=== PATIENT | female | born 1935 | race Caucasian/White ===

== ENCOUNTER 2017-09-07 13:48 | Inpatient (IN) | payer MEDICARE, BC, OTHER, SELFPAY ==
[2017-09-07 12:28] VITALS: BP 126/70; PULSE 123; RESP 18; TEMP 36.7; O2SAT 92; BMI 22.1
--- NOTE | 2017-09-07 12:41 | XR_ITS ---
XR chest portable Ordering Physician: Ashley Ignacio MD Patient Age: 81 years: Female HISTORY: ITS.REASON: SOA TECHNIQUE/FINDINGS: Limited rotated portable AP upright chest performed and compared to previous chest film from 02/01/2017. Left lower lobe infiltrate, pneumonic infiltrate is seen today and obscures the left hemidiaphragm. There may be a small left pleural effusion noted blunting towards the left CP angle.. The left upper lung field is clear Right lung demonstrates chronic changes throughout which are similar to previous study. Subtle accentuation of density towards the right base but I favor this reflects chronic changes, mild atelectasis as well as costochondral calcification projected over the right lung base. Minimal area density at the periphery the right midlung most likely reflecting chronic changes as well as accentuated by the higher contrast CXR today. Doubt early infiltrate here. Very minimal scarring at the right apex. . Difficult to exclude trace minimal infiltrate just lateral to the right [place] on this study Heart is normal in size. [place] and mediastinal structures similar. The left [place] is upper normal prominence. Follow-up chest film be important to exclude any underlying fullness or abnormalities of the left [place]. Scoliosis. Kyphosis . No CHF =IMPRESSION= 1. Left lower lobe pneumonia 2. Fullness left [place] most likely accentuated by leftward rotation of chest. 3. follow-up CXR will be important to exclude any underlying findings at left [place] and confirm clearing of the current LLL pneumonia.. 4. Chronic lung changes. COPD
--- NOTE | 2017-09-07 12:44 | HMH.EDSOB ---
ED Disposition Clinical Impression: COPD exacerbation, Bronchiectasis, DNR (do not resuscitate), Pneumonia Disposition: Still a Patient Condition on Discharge: Fair - Critical Care Critical Care Time: No Attestation: On , the high probability of a clinically significant, sudden or life threatening deterioration of the following system(s) required my full and direct attention, intervention and personal management. The time I documented below is in addition to time spent performing reported procedures but includes the following listed in this critical care notation. Medical Decision Making - Medical Records Medical records reviewed: Yes: I reviewed the patient's medical records. Vital Signs: 09/07/17 12:28 Temperature 98.1 F Temperature Source Oral Pulse Rate [Right Brachial] 123 H Respiratory Rate 18 Blood Pressure [Right Arm] 126/70 Blood Pressure Mean [Right Arm] 88 Blood Pressure Source [Right Arm] Automatic Cuff Blood Pressure Position [Right Arm] Sitting 02 Sat by Pulse Oximetry 92 L Oxygen Delivery Method Room Air - Lab Data Lab Results 09/07/17 12:40: WBC 24.0 H*, RBC 3.05 L, Hgb 8.6 L, Hct 27.4 L, MCV 90.0, MCH 28.3, MCHC 31.4 L, RDW 15.1, Plt Count 190, MPV 9.4, Neut % (Auto) 92.7 H, Lymph % (Auto) 2.4 L, [place] % (Auto) 3.8, Eos % (Auto) 0.4, Baso % (Auto) 0.7, Neut # (Auto) 22.2 H, Lymph # (Auto) 0.6 L, [place] # (Auto) 0.9, Eos # (Auto) 0.1, Baso # (Auto) 0.2, Total Counted 100, Neutrophils % (Manual) 85 H, Band Neutrophils % 4.0, Lymphocytes % (Manual) 7 L, Atypical Lymphs % 1.0, Monocytes % (Manual) 3, Platelet Estimate Normal, RBC Morphology Normal 09/07/17 12:40: Sodium 139, Potassium 3.5, Chloride 97 L, Carbon Dioxide 40 H, Anion Gap 5.5, BUN 30 H, Creatinine 0.86, Estimated Creat Clear 41, Estimated GFR 64, Est GFR ( Amer) 77, Glucose 137 H, Calcium 8.9, Total Bilirubin 0.4, AST 19, ALT 51, Alkaline Phosphatase 86, Troponin I < 0.02, Total Protein 6.1 L, Albumin 2.3 L, Globulin 3.8 H, Albumin/Globulin Ratio 0.6 L 09/07/17 12:40: B-Natriuretic Peptide 97 09/07/17 12:45: Specimen Source Right radial, O2 % 5 lpm aerosol mask, ABG pH 7.47 H, ABG pCO2 57.9 H, ABG pO2 61.4 L, ABG HCO3 41.4 H, ABG Total CO2 43.2 H, ABG O2 Saturation 92, ABG Base Excess 17.7 H, Adama Test Acceptable 09/07/17 12:50: Lactic Acid 1.4 Result diagrams: 09/07/17 12:40 09/07/17 12:40 Orders (Tests/Meds): ED MEDICATIONS Generic Name Dose Route Start Last Admin Trade Name Sunny PRN Reason Stop Dose Admin Famotidine 20 mg 09/07/17 21:00 Pepcid 20mg/2ml Vial IV 10/07/17 20:59 BID GAVI Cefepime HCl 1 gm/ Sodium 50 mls @ 100 mls/hr 09/07/17 12:45 09/07/17 14:17 Chloride IV 09/21/17 12:44 100 mls/hr Q12H GAVI Administration Protocol Vancomycin HCl 1,000 mg/ 250 mls @ 125 mls/hr 09/07/17 14:30 Sodium Chloride IV 09/21/17 14:29 Q24H GAVI Discontinued Medications Generic Name Dose Route Start Last Admin Trade Name Sunny PRN Reason Stop Dose Admin Methylprednisolone Sodium Succinate 125 mg 09/07/17 12:41 09/07/17 14:17 Solu-Medrol 125mg/2ml Vial IV 09/07/17 12:42 125 mg ONCE ONE Administration Sodium Chloride 8 ml 09/07/17 12:41 09/07/17 14:17 Saline Flush 10ml Syringe IV 09/07/17 12:42 8 ml ONCE ONE Administration Vancomycin HCl 1,000 mg 09/07/17 12:45 Vancomycin 1000mg Adv IV 09/07/17 23:00 CONSULT PHARMACY GAVI Protocol ORDERS Category Date Time Status Blood Culture Stat Micro 09/07/17 12:55 Received Sputum Culture & Gram Stain Stat Micro 09/07/17 12:41 Ordered ABG [Arterial Blood Gas] Stat RT 09/07/17 12:43 Ordered ECG Request by /Nse Stat Y 09/07/17 12:41 Ordered - Magdaleno Inquiry Pt receiving controlled substance: No Magdaleno was queried for this patient: No Medical Decision Making Narrative: The patient had ABG with respiratory alkalosis her chest x-ray was positive for bibasilar infiltrates and the
--- NOTE | 2017-09-07 12:48 | ED_ITS ---
ED Disposition Clinical Impression: COPD exacerbation, Bronchiectasis, DNR (do not resuscitate), Pneumonia Disposition: Still a Patient Condition on Discharge: Fair - Critical Care Critical Care Time: No Attestation: On , the high probability of a clinically significant, sudden or life threatening deterioration of the following system(s) required my full and direct attention, intervention and personal management. The time I documented below is in addition to time spent performing reported procedures but includes the following listed in this critical care notation. Medical Decision Making - Medical Records Medical records reviewed: Yes: I reviewed the patient's medical records. Vital Signs: 09/07/17 12:28 Temperature 98.1 F Temperature Source Oral Pulse Rate [Right Brachial] 123 H Respiratory Rate 18 Blood Pressure [Right Arm] 126/70 Blood Pressure Mean [Right Arm] 88 Blood Pressure Source [Right Arm] Automatic Cuff Blood Pressure Position [Right Arm] Sitting 02 Sat by Pulse Oximetry 92 L Oxygen Delivery Method Room Air - Lab Data Lab Results 09/07/17 12:40: WBC 24.0 H*, RBC 3.05 L, Hgb 8.6 L, Hct 27.4 L, MCV 90.0, MCH 28.3, MCHC 31.4 L, RDW 15.1, Plt Count 190, MPV 9.4, Neut % (Auto) 92.7 H, Lymph % (Auto) 2.4 L, [place] % (Auto) 3.8, Eos % (Auto) 0.4, Baso % (Auto) 0.7, Neut # (Auto) 22.2 H, Lymph # (Auto) 0.6 L, [place] # (Auto) 0.9, Eos # (Auto) 0.1 , Baso # (Auto) 0.2, Total Counted 100, Neutrophils % (Manual) 85 H, Band Neutrophils % 4.0, Lymphocytes % (Manual) 7 L, Atypical Lymphs % 1.0, Monocytes % (Manual) 3, Platelet Estimate Normal, RBC Morphology Normal 09/07/17 12:40: Sodium 139, Potassium 3.5, Chloride 97 L, Carbon Dioxide 40 H, Anion Gap 5.5, BUN 30 H, Creatinine 0.86, Estimated Creat Clear 41, Estimated GFR 64, Est GFR ( Amer) 77, Glucose 137 H, Calcium 8.9, Total Bilirubin 0.4, AST 19, ALT 51, Alkaline Phosphatase 86, Troponin I < 0.02, Total Protein 6.1 L, Albumin 2.3 L, Globulin 3.8 H, Albumin/Globulin Ratio 0.6 L 09/07/17 12:40: B-Natriuretic Peptide 97 09/07/17 12:45: Specimen Source Right radial, O2 % 5 lpm aerosol mask, ABG pH 7.47 H, ABG pCO2 57.9 H, ABG pO2 61.4 L, ABG HCO3 41.4 H, ABG Total CO2 43.2 H, ABG O2 Saturation 92, ABG Base Excess 17.7 H, Adama Test Acceptable 09/07/17 12:50: Lactic Acid 1.4 Result diagrams: 09/07/17 12:40 09/07/17 12:40 Orders (Tests/Meds): ED MEDICATIONS Generic Name Dose Route Start Last Admin Trade Name Sunny PRN Reason Stop Dose Admin Famotidine 20 mg 09/07/17 21:00 Pepcid 20mg/2ml Vial IV 10/07/17 20:59 BID GAVI Cefepime HCl 1 gm/ Sodium 50 mls @ 100 mls/hr 09/07/17 12:45 09/07/17 14:17 Chloride IV 09/21/17 12:44 100 mls/hr Q12H GAVI Administration Protocol Vancomycin HCl 1,000 mg/ 250 mls @ 125 mls/hr 09/07/17 14:30 Sodium Chloride IV 09/21/17 14:29 Q24H GAVI Discontinued Medications Generic Name Dose Route Start Last Admin Trade Name Sunny PRN Reason Stop Dose Admin Methylprednisolone Sodium Succinate 125 mg 09/07/17 12:41 09/07/17 14:17 Solu-Medrol 125mg/2ml Vial IV 09/07/17 12:42 125 mg ONCE ONE Administration Sodium Chloride 8 ml 09/07/17 12:41 09/07/17 14:17 Saline Flush 10ml Syringe IV 09/07/17 12:42 8 ml ONCE ONE Administration Vancomycin HCl 1,000 mg 08/28
[2017-09-07 12:53] LABS: ABG Base Excess 17.7 mmol/L (-2.4-2.3); ABG HCO3 41.4 mmhg (22.0-26.0); ABG Oxygen Saturation 92 % (90-100); ABG PH 7.47 mmol/L (7.35-7.45); ABG PO2 61.4 mmhg (80-100); ABG TCO2 43.2 mmhg (23-27)
[2017-09-07 12:56] LABS: ABG PCO2 57.9 mmhg (35.0-45.0); Allen's Test ACCEPTABLE; Source RIGHT RADIAL
[2017-09-07 13:25] LABS: Basophils # 0.2 K/mm3 (0-0.2); Basophils % 0.7 % (0.1-2.0); Eosinophils # 0.1 K/mm3 (0.0-0.4); Eosinophils % 0.4 % (0.1-12.0); Hematocrit 27.4 % (37.0-47.0); Hemoglobin 8.6 g/dL (12.2-16.2); Lymphocytes # 0.6 K/mm3 (0.7-4.5); Lymphocytes % 2.4 K/mm3 (10-50); Mean Corpuscular HGB Conc 31.4 g/dL (31.8-35.4); Mean Corpuscular Hemoglobin 28.3 pg (27.0-31.2); Mean Platelet Volume 9.4 fl (7.4-10.4); Monocytes # 0.9 K/mm3 (0.1-1.0); Monocytes % 3.8 % (1.7-9.3); Neutrophils # 22.2 K/mm3 (1.8-7.8); Neutrophils % 92.7 % (37.0-80.0); Platelet Count 190 K/mm3 (142-424); Red Blood Count 3.05 M/mm3 (4.20-5.40); Red Cell Distribution Width 15.1 % (11.5-17.5)
[2017-09-07 13:27] LABS: MANUAL DIFFERENTIAL MANUAL DIFFERENTIAL (MANUAL DIFF)
[2017-09-07 13:35] LABS: Lactic Acid 1.4 mmol/L (0.4-2.0)
[2017-09-07 13:36] LABS: Alanine Aminotransferase 51 U/L (12-78); Albumin Level 2.3 gm/dL (3.4-5.0); Albumin/Globulin Ratio 0.6 (1.1-1.8); Alkaline Phosphatase 86 U/L (46-116); Anion Gap 5.5 mEq/L (5-15); Aspartate Amino Transferase 19 U/L (15-37); Bilirubin,Total 0.4 mg/dL (0.2-1.0); Blood Urea Nitrogen 30 mg/dL (7-18); Calcium 8.9 mg/dL (8.5-10.1); Carbon Dioxide 40 mmol/L (21.0-32.0); Chloride 97 mmol/L (98-107); Creatinine Clearance Estimated 41 mL/min (0-300); Creatinine,Serum 0.86 mg/dL (0.55-1.02); Estimated Glomerular Filt Rate 64 ml/min (>60); GFR (African American) 77 ML/MIN (>60); Globulin 3.8 gm/dl (1.3-3.2); Glucose 137 mg/dL (74-106); Potassium 3.5 mmoL/L (3.5-5.1); Sodium 139 mmol/L (136-145); Total Protein,Serum 6.1 gm/dL (6.4-8.2); Troponin I < 0.02 ng/ml (0.00-0.06)
[2017-09-07 13:42] LABS: Lymphocytes % 7 % (10-50); Monocytes % 3 % (2-9); Neutrophils % 85 % (42-76); Platelet Estimate Normal; RBC Morphology Normal; Total Cells Counted 100
--- NOTE | 2017-09-07 14:27 | P.CONPHA_ITS ---
- Pharmacy Consult Date: 09/07/17 Time: 14:26 Referring provider: DR. LAMB Reason for Consult:: VANCOMYCIN DOSING Allergies and ADEs:: Allergies Allergy/AdvReac Type Severity Reaction Status Date / Time No Known Allergies Allergy Unverified 06/17/17 14:18 Home Medications:: Home Medications Medication Instructions Recorded Confirmed Type Aspirin [Aspir 81] 81 mg PO DAILY 09/07/17 09/07/17 History Budesonide/Formoterol Fumarate 10.2 gm IH DIRECTED 09/07/17 09/07/17 History [Symbicort 80-4.5 Mcg Inhaler] Fluconazole [Diflucan 100mg tablet] 0 mg * DAILY 09/07/17 09/07/17 History Fluconazole [Diflucan 200mg tablet] 200 mg PO DAILY 09/07/17 09/07/17 History Furosemide [Lasix 20mg tab] 20 mg PO DAILY 09/07/17 09/07/17 History Pantoprazole Sodium [Protonix 40mg 40 mg PO DIRECTED 09/07/17 09/07/17 History tablet] Tiotropium [place] [Spiriva 0 mcg IH DIRECTED 09/07/17 09/07/17 History 18mcg/puff inhaler] dilTIAZem HCl [Cardizem] 30 mg PO DIRECTED 09/07/17 09/07/17 History levoFLOXacin [Levaquin 750mg 750 mg PO DAILY 09/07/17 09/07/17 History tablet] predniSONE [Deltasone 5mg 5 mg PO DAILY 09/07/17 09/07/17 History tablet] Height: 1.6 m Weight: 56.699 kg Laboratory Results:: Laboratory Results - last 24 hr 09/07/17 12:40: WBC 24.0 H*, RBC 3.05 L, Hgb 8.6 L, Hct 27.4 L, MCV 90.0, MCH 28.3, MCHC 31.4 L, RDW 15.1, Plt Count 190, MPV 9.4, Neut % (Auto) 92.7 H, Lymph % (Auto) 2.4 L, [place] % (Auto) 3.8, Eos % (Auto) 0.4, Baso % (Auto) 0.7, Neut # (Auto) 22.2 H, Lymph # (Auto) 0.6 L, [place] # (Auto) 0.9, Eos # (Auto) 0.1 , Baso # (Auto) 0.2, Total Counted 100, Neutrophils % (Manual) 85 H, Band Neutrophils % 4.0, Lymphocytes % (Manual) 7 L, Atypical Lymphs % 1.0, Monocytes % (Manual) 3, Platelet Estimate Normal, RBC Morphology Normal 09/07/17 12:40: Sodium 139, Potassium 3.5, Chloride 97 L, Carbon Dioxide 40 H, Anion Gap 5.5, BUN 30 H, Creatinine 0.86, Estimated Creat Clear 41, Estimated GFR 64, Est GFR ( Amer) 77, Glucose 137 H, Calcium 8.9, Total Bilirubin 0.4, AST 19, ALT 51, Alkaline Phosphatase 86, Troponin I < 0.02, Total Protein 6.1 L, Albumin 2.3 L, Globulin 3.8 H, Albumin/Globulin Ratio 0.6 L 09/07/17 12:40: B-Natriuretic Peptide 97 09/07/17 12:45: Specimen Source Right radial, O2 % 5 lpm aerosol mask, ABG pH 7.47 H, ABG pCO2 57.9 H, ABG pO2 61.4 L, ABG HCO3 41.4 H, ABG Total CO2 43.2 H, ABG O2 Saturation 92, ABG Base Excess 17.7 H, Adama Test Acceptable 09/07/17 12:50: Lactic Acid 1.4 Assessment and Plan - Assessment and plan all Dx Assessment and Plan for all problems:: BASED ON PATIENT FACTORS, RECOMMEND VANCOMYCIN 1GM IV Q24H. PHARMACY WILL FOLLOW DAILY AND ADJUST APPROPRIATE.
[2017-09-07 15:21] VITALS: BMI 21.7
[2017-09-07 16:03] VITALS: BP 133/80; PULSE 73; RESP 18; TEMP 36.7; O2SAT 98
[2017-09-07 16:08] VITALS: RESP 16
[2017-09-07 16:18] VITALS: BP 133/57; PULSE 109; RESP 22; TEMP 36.8; O2SAT 93
[2017-09-07 20:00] VITALS: BP 122/54; PULSE 106; RESP 22; TEMP 36.3; O2SAT 97
[2017-09-08] VITALS (20 sets, daily range): BP systolic 101–127; BP diastolic 52–65; PULSE 67–115; RESP 16–24; TEMP 36.3–37.4; O2SAT 92–100; BMI 22.7
--- NOTE | 2017-09-08 02:27 | PC.NURSE ---
Patient sitting up in bed now resting with eyes closed. Has been on bipap most of night, sats remaining high 90's. Was on 50% Venti for a short period. Request to be put back on Bipap. Patient is anxious at times. Instruct to slow breathing down. Does well turning self, tolerates ok. Wants to be sitting up high in bed. Small open area noted on coccyx. Encouraged patient to stay off backside as much as can. Pillows propped under back to relieve pressure. Verbalized understanding. Has used bedpan 2 times this shift to urinate. Lungs have rhonchi bilat. Resp even and labored at times. Refuses to wear Teds. Education given on risk of thrombi, verbalized understanding. IV is patent, positional, flushes easily.Bed locked in low position, side rails up x 2, call light within reach. Encouraged to call out if any needs. Will continue to monitor.
[2017-09-08 07:14] LABS: Basophils % 0.2 % (0.1-2.0); Lymphocytes # 0.2 K/mm3 (0.7-4.5); Lymphocytes % 1.4 K/mm3 (10-50); Mean Corpuscular HGB Conc 31.7 g/dL (31.8-35.4); Mean Corpuscular Hemoglobin 28.9 pg (27.0-31.2); Mean Corpuscular Volume 91.1 fl (81-99); Mean Platelet Volume 9.8 fl (7.4-10.4); Monocytes # 0.3 K/mm3 (0.1-1.0); Monocytes % 2.5 % (1.7-9.3); Neutrophils # 12.3 K/mm3 (1.8-7.8); Neutrophils % 95.9 % (37.0-80.0); Platelet Count 122 K/mm3 (142-424); Red Blood Count 2.55 M/mm3 (4.20-5.40); White Blood Count 12.9 K/mm3 (4.8-10.8)
[2017-09-08 07:24] LABS: Anion Gap 5.7 mEq/L (5-15); Blood Urea Nitrogen 32 mg/dL (7-18); Chloride 100 mmol/L (98-107); Creatinine Clearance Estimated 45 mL/min (0-300); Creatinine,Serum 0.79 mg/dL (0.55-1.02); Estimated Glomerular Filt Rate 70 ml/min (>60); GFR (African American) 85 ML/MIN (>60); Glucose 137 mg/dL (74-106); Potassium 3.7 mmoL/L (3.5-5.1); Sodium 144 mmol/L (136-145)
--- NOTE | 2017-09-08 07:29 | P.CONPHA_ITS ---
[facility] Pharmacy VTE Monitoring - Patient Demographics Admission date: 09/07/17 Report Date: 09/08/17 Time: 07:29 Allergies/Adverse Reactions: Patient Allergies No Known Allergies Allergy (Unverified 06/17/17 14:18) Height: 1.65 m Weight: 61.9 kg Patient Problems: Current Active Problems COPD exacerbation (Acute) Bronchiectasis (Acute) DNR (do not resuscitate) (Acute) Pneumonia (Acute) - VTE Risk Labs: VTE Related Lab Results Hgb 8.6 g/dL (12.2-16.2) L 09/07/17 12:40 Hct 27.4 % (37.0-47.0) L 09/07/17 12:40 Plt Count 190 K/mm3 (142-424) 09/07/17 12:40 BUN 30 mg/dL (7-18) H 09/07/17 12:40 Creatinine 0.86 mg/dL (0.55-1.02) 09/07/17 12:40 Estimated Creat Clear 41 mL/min (0-300) 09/07/17 12:40 VTE Risk Level: Moderate Risk - Prophylaxis VTE Prophylaxis Ordered?: Yes Types of VTE Prophylaxis: TEDS Knee High Location of Applied Device: Bilateral Lower Extremeties - VTE Diagnosis Confirmed Treatment or plan recommended: Continue Current Treatment
[2017-09-08 07:32] LABS: Hematocrit 23.2 % (37.0-47.0); Hemoglobin 7.4 g/dL (12.2-16.2)
[2017-09-08 07:33] LABS: MANUAL DIFFERENTIAL MANUAL DIFFERENTIAL (MANUAL DIFF)
[2017-09-08 07:37] LABS: Carbon Dioxide 42 mmol/L (21.0-32.0)
--- NOTE | 2017-09-08 07:40 | PC.NURSE ---
Received critical lab results Hgb 7.4, HCT 23.2. Call placed to Dr Perez. Awaiting return call.
--- NOTE | 2017-09-08 08:11 | PC.NURSE ---
Dr Perez arrived on floor. Informed of pt's critical H/H and will see pt.
[2017-09-08 09:39] LABS: Lymphocytes % 3 % (10-50); Monocytes % 1 % (2-9); Neutrophils % 96 % (42-76); Platelet Estimate Slight Decrease; RBC Morphology Normal; Total Cells Counted 100
--- NOTE | 2017-09-08 11:27 | PC.NURSE ---
Spoke with pt and daughter regarding dietary intake as pt's dentures do not fit properly. Pt is not in agreement to ground meats. Pt requesting soups. Patient confirms that she like Ensure. Pt was given a vanilla Ensure shake.
--- NOTE | 2017-09-08 11:30 | PC.NURSE ---
Attempting to wean pt to 35% venti mask (9 L). Will continue to monitor O2 saturations.
--- NOTE | 2017-09-08 11:35 | SW/DCPLANNER ---
Addendum entered by Karen Phillip 09/08/17 15:19: Hospice nurse (Tabitha Jauregui) came to visit this patient this afternoon. Tabitha has stated that due to patients decline she will wait and re-visit patient tomorrow and see how patient is doing. Tabitha has stated that family is on board and agrees to plan of hospice. Nurse (Crystal) has made contact with . Original Note: Spoke with patients family regarding discharge plans. Patients daughter was present in room during conversation and has stated that this patient will not be returning to [facility]. Family is not happy with care at [facility] at this time. Daughter had stated that she prefer take patient home with Hospice care. Patient would live at home with her and daughter has stated that patients other daughter lives two streets away and does not work and she would hope that she would assist in caring for this patient. I have spoke with Cecilia with Hospice to ask if they can send a nurse to [facility] to visit this patient to see if she is a candidate for their services. I will fax patient information to Hospice and follow up once a nurse comes to visit this patient.
--- NOTE | 2017-09-08 12:51 | HMH.HP ---
*Admission Date: 09/07/17 *Chief complaint: sob *History of present illness: this wf who was at [facility] and had cough and sob with no chest pain but dec sat with no resp to treatment at [facility] was brought by ems to ed and found to have pneuonia- years old white female with history of COPD bronchiectasis and DNR from the half-way. 2 days ago , she developed respiratory symptoms started on Levaquin and prednisone. Last night her symptoms started worsening and this morning she was found blue with a sat of 65% by the nursing staff. Upon EMS arrival her sats were 84% she was put on 4 L with increased to 94%. She is in mild to moderate respiratory distress. She has cough but she has no fever. [facility] History I have reviewed the patient's past medical history: Yes Medical History: Reports:: Atrial Fibrillation, Congestive Heart Failure, Hypertension Denies:: Cancer, Diabetes Mellitus Type 1, Diabetes Mellitus Type 2, MRSA Other Medical History: Reports: Anemia, Arthritis, Cataracts, Hoarseness, Sinus Problems, Thyroid Disease Other Surgeries: Yes: Colonoscopy, EGD, Hysterectomy-Total Amputation: No Fractures: No - *Social History Educational Level: Attended High School Smoking Status: Former smoker Tobacco Type: cigarettes Alcohol Intake: never Occupational Status: retired Housing: half-way - Psychiatric History Expresses thoughts of harming self/others: None Suicide Plan Description: No Plan *Family Hx:: Anemia, Hyperlipidemia, Hypertension Review of Systems - Review of Systems Review of systems:: pertinent systems reviewed and negative unless documented below - Constitutional Reports malaise, Reports weakness, Denies fever(s) - Eyes Denies change in vision - ENT Denies sore throat, Denies throat swelling - *Cardiovascular Reports shortness of breath, Reports shortness of breath when lying down, Denies radiating jaw, neck or arm pain - *Respiratory Reports cough, Reports shortness of breath, Denies coughing up blood - *Gastrointestinal Denies abdominal pain - *Genitourinary Denies blood in urine - *Musculoskeletal Denies joint pain - Integumentary/Breasts Denies rash - *Neurologic Reports weakness, Denies behavioral changes, Denies confusion - Psychiatric Reports anxiety Meds Home Medications Medication Instructions Recorded Confirmed Type Aspirin [Aspir 81] 81 mg PO DAILY 09/07/17 09/07/17 History Budesonide/Formoterol Fumarate 2 puffs IH BID 09/07/17 09/08/17 History [Symbicort 80-4.5 Mcg Inhaler] Fluconazole [Diflucan 100mg tablet] 100 mg PO DAILY 09/07/17 09/08/17 History Fluconazole [Diflucan 200mg tablet] 200 mg PO DAILY 09/07/17 09/07/17 History Furosemide [Lasix 20mg tab] 20 mg PO DAILY 09/07/17 09/07/17 History Pantoprazole Sodium [Protonix 40mg 40 mg PO DAILY 09/07/17 09/08/17 History tablet] Tiotropium [place] [Spiriva 2 puff IH DAILY 09/07/17 09/08/17 History 18mcg/puff inhaler] dilTIAZem HCl [Cardizem] 30 mg PO Q6H 09/07/17 09/08/17 History levoFLOXacin [Levaquin 750mg 750 mg PO DAILY 09/07/17 09/07/17 History tablet] predniSONE [Deltasone 5mg 20 mg PO DAILY 09/07/17 09/08/17 History tablet] Guaifenesin/Dextromethorphan 10 ml PO Q6HP PRN 09/08/17 09/08/17 History [Robitussin Cough-Chest Dm Liq] Ipratropium/Albuterol Sulfate 3 ml IH Q4HP PRN 09/08/17 09/08/17 History [Duoneb 3mL neb] Polyethylene Glycol 3350 [PEG 3350 17 gm PO DAILYP PRN 09/08/17 09/08/17 History 17gm Packet] Allergies Allergy/AdvReac Type Severity Reaction Status Date / Time No Known Allergies Allergy Unverified 06/17/17 14:18 Exam Vital signs and Labs for Last 24 Hours: Temp Pulse Resp BP Pulse Ox 97.9 F 103 H 22 107/62 95 09/08/17 11:31 09/08/17 11:31 09/08/17 11:31 09/08/17 11:31 09/08/17 11:31 Laboratory Results - last 24 hr 09/08/17 07:00: WBC 12.9 H D, RBC 2.55 L, Hgb 7.4 L*, Hct 23.2 L*, MCV 91.1, MCH 28.9, MC
--- NOTE | 2017-09-08 13:25 | PC.NURSE ---
Pt instructed on need for sputum specimen. Pt verbalizes that she has a non-productive moist cough. Container left at bedside and pt will provide specimen when able to expectorate sputum.
--- NOTE | 2017-09-08 14:14 | PC.NURSE ---
Interdisciplinary meeting completed with Nursing, Dietary, and care management in attendance. Discussed pt's care and discharge needs.
--- NOTE | 2017-09-08 15:00 | PC.NURSE ---
Tabitha from [facility] consulting with pt and family. Spoke with Mercy Perez's office regarding comfort measures to include mg catheter and Morphine for air hunger. Awaiting a return call.
--- NOTE | 2017-09-08 15:55 | PC.NURSE ---
PATIENT UNABLE TO COUGH ANYTHING UP AND REFUSES TO BE SUCTIONED.
--- NOTE | 2017-09-08 17:29 | PC.NURSE ---
PT IS A&Ox3. PATIENT TACHYPNEIC THIS SHIFT WITH RESPIRATIONS 20 - 24bpm. hEART RATE TACHYCARDIC IN THE 110'S. PT WITH RHONCHI THROUGHOUT. O2 WEANED TO 35% VENTI MASK AND O2 SATS MAINTAINED > 90%. HOSPICE CONSULT COMPLETED TODAY. PT RECEIVING PRBCs AT TIME OF THIS DOCUMENTATION. WILL CONTINUE TO MONITOR.
--- NOTE | 2017-09-08 18:28 | PC.NURSE ---
Pt medicated with Morphine sulfate 2mg IVP for air hunger. Respiratiosns 22. Heart rate 105. Will continue to monitor.
--- NOTE | 2017-09-08 19:12 | PC.NURSE ---
Report given to Debby Houston RN
[2017-09-08 20:40] LABS: Hematocrit 33.2 % (37.0-47.0)
[2017-09-08 20:54] LABS: Hemoglobin 10.7 g/dL (12.2-16.2)
[2017-09-09] VITALS (11 sets, daily range): BP systolic 102–118; BP diastolic 49–61; PULSE 62–118; RESP 18–24; TEMP 36.4–37.3; O2SAT 91–95
--- NOTE | 2017-09-09 03:56 | PC.NURSE ---
PATIENT SEEMS TO HAVE SLEPT WELL THE MAJORITY OF THIS SHIFT. SHE HAS BEEN VERY WEAK AND LETHARGIC. SHE HAS HAD AN INTERMITTEN, RATTLING COUGH AND IS UNABLE TO PRODUCE ANY SPUTUM. SHE CONTINUES ON 35% VENTI MASK. RESPIRATIONS ARE SHALLOW. RHONCHI NOTED TO BUL AND DIMINISHED THROUGHOUT. ABD DISTENDED AND FAMILY STATES THAT SHE HAS NOT HAD A BOWEL MOVEMENT IN APPROX 1 WEEK. HOWEVER, PATIENT DID HAVE A MODERATE, LOOSE BOWEL MOVEMENT THIS AM. PATIENT TURNED AND REPOSITIONED EVERY 2 HOURS PER STAFF. FAMILY AT BEDSIDE. VSS. NO OTHER PROBLEMS NOTED AT THIS TIME. WILL CONTINUE TO MONITOR. SAFETY MEASURES IN PLACE, CALL LIGHT IN REACH.
--- NOTE | 2017-09-09 07:27 | PC.NURSE ---
REPORT GIVEN TO Diamante [facility] W/C
--- NOTE | 2017-09-09 09:08 | HMH.ACPN2 ---
Internal Medicine - PN: Subj *Date: 09/09/17 *Time: 09:08 Interval history: pt with feeling better today Exam Vital signs and Labs for Last 24 Hours: Temp Pulse Resp BP Pulse Ox 97.9 F 104 H 18 110/55 95 09/09/17 08:00 09/09/17 08:00 09/09/17 08:00 09/09/17 08:00 09/09/17 08:00 Laboratory Results - last 24 hr 09/08/17 07:00: Total Counted 100, Neutrophils % (Manual) 96 H, Lymphocytes % (Manual) 3 L, Monocytes % (Manual) 1 L, Platelet Estimate Slight decrease, RBC Morphology Normal 09/08/17 15:05: Blood Type O Negative, Antibody Screen Negative, Crossmatch (AHG) See Detail 09/08/17 15:05: Blood Type Cancelled, Antibody Screen Cancelled 09/08/17 15:35: Blood Type Confirm O Negative 09/08/17 20:20: Hgb 10.7 L D, Hct 33.2 L I & O for Last 24 hours: Intake & Output 09/06/17 09/07/17 09/08/17 09/09/17 10:59 11:59 11:59 11:59 Intake Total 600 / 600 50 / 50 Balance 600 / 600 50 / 50 Weight 136 lb 7.458 oz 127 lb 3 oz - Constitutional no acute distress - *Routine HEENT Exam Head: Present: normocephalic Eye: Present: EOMI, PERRL ENT: Present: mucous membranes dry - *Routine Neck Exam Absent: JVD - *Routine Respiratory Exam Present: decreased breath sounds - *Routine Cardiovascular Exam Present: RRR, murmur - *Routine Abdominal Exam Present: soft - *Routine Extremities Exam Present: cyanosis, edema. Absent: calf tenderness - *Routine Skin Exam Present: intact - *Routine Neurological Exam Present: alert, CN II-XII intact - Routine Psychiatric Exam Present: normal affect Assessment and Plan (1) Pneumonia Current visit: Yes Status: Acute Category: Medical Code(s): J18.9 - Pneumonia, unspecified organism
--- NOTE | 2017-09-09 09:11 | P.PN_ITS ---
Internal Medicine - PN: Subj *Date: 09/09/17 *Time: 09:08 Interval history: pt with feeling better today Exam Vital signs and Labs for Last 24 Hours: Temp Pulse Resp BP Pulse Ox 97.9 F 104 H 18 110/55 95 09/09/17 08:00 09/09/17 08:00 09/09/17 08:00 09/09/17 08:00 09/09/17 08:00 Laboratory Results - last 24 hr 09/08/17 07:00: Total Counted 100, Neutrophils % (Manual) 96 H, Lymphocytes % ( Manual) 3 L, Monocytes % (Manual) 1 L, Platelet Estimate Slight decrease, RBC Morphology Normal 09/08/17 15:05: Blood Type O Negative, Antibody Screen Negative, Crossmatch (AHG ) See Detail 09/08/17 15:05: Blood Type Cancelled, Antibody Screen Cancelled 09/08/17 15:35: Blood Type Confirm O Negative 09/08/17 20:20: Hgb 10.7 L D, Hct 33.2 L I & O for Last 24 hours: Intake & Output 09/06/17 09/07/17 09/08/17 09/09/17 10:59 11:59 11:59 11:59 Intake Total 600 / 600 50 / 50 Balance 600 / 600 50 / 50 Weight 136 lb 7.458 oz 127 lb 3 oz - Constitutional no acute distress - *Routine HEENT Exam Head: Present: normocephalic Eye: Present: EOMI, PERRL ENT: Present: mucous membranes dry - *Routine Neck Exam Absent: JVD - *Routine Respiratory Exam Present: decreased breath sounds - *Routine Cardiovascular Exam Present: RRR, murmur - *Routine Abdominal Exam Present: soft - *Routine Extremities Exam Present: cyanosis, edema. Absent: calf tenderness - *Routine Skin Exam Present: intact - *Routine Neurological Exam Present: alert, CN II-XII intact - Routine Psychiatric Exam Present: normal affect Assessment and Plan (1) Pneumonia Current visit: Yes Status: Acute Category: Medical Code(s): J18.9 - Pneumonia, unspecified organism
[2017-09-09 10:00] LABS: Adenovirus F 40/41, stool Not Detected (NotDetected); Astrovirus Not Detected (NotDetected); Campylobacter Not Detected (NotDetected); Cryptosporidium Not Detected (NotDetected); Cyclospora Cayetanesis Not Detected (NotDetected); Entamoeba histolytica Not Detected (NotDetected); Enteroaggregative E coli Not Detected (NotDetected); Enteropathogenic E coli Not Detected (NotDetected); Enterotoxigenic E coli Not Detected (NotDetected); Giardia lamblia Not Detected (NotDetected); Norovirus Not Detected (NotDetected); Plesimonas Shigalloides, PCR Not Detected (NotDetected); Rotavirus A Not Detected (NotDetected); Salmonella, PCR Not Detected (NotDetected); Sapovirus Not Detected (NotDetected); Shiga-like toxin E coli Not Detected (NotDetected); Shigella Enterovasive E coli Not Detected (NotDetected); Vibrio Cholerae Not Detected (NotDetected); Vibrio, PCR Not Detected (NotDetected); Yersinia Entercolitica, PCR Not Detected (NotDetected)
[2017-09-09 10:00] LABS: Adenovirus,PCR Not Detected (NotDetected); Bordetella Pertussis Not Detected (NotDetected); Chlamydophila Pneumoniae, PCR Not Detected (NotDetected); Coronavirus 229E Not Detected (NotDetected); Coronavirus NL63 Not Detected (NotDetected); Coronavirus OC43 Not Detected (NotDetected); Coronovirus HKU1,PCR Not Detected (NotDetected); Human Metapneumovirus Not Detected (NotDetected); Influenza A, PCR Not Detected (NotDetected); Influenza AH1, 2009 Not Detected (NotDetected); Influenza AH1, PCR Not Detected (NotDetected); Influenza AH3,PCR Not Detected (NotDetected); Influenza B, PCR Not Detected (NotDetected); Mycoplasma Pneumoniae, PCR Not Detected (NotDected); Parainfluenza 1, PCR Not Detected (NotDetected); Parainfluenza 2, PCR Not Detected (NotDetected); Parainfluenza 3, PCR Not Detected (NotDetected); Parainfluenza 4, PCR Not Detected (NotDetected); Respiratory Syncytial Virus Not Detected (NotDetected); Rhinovirus/Enterovirus Not Detected (NotDetected)
[2017-09-09 11:57] LABS: Clostridium Difficile A/B, PCR Detected (NotDetected)
--- NOTE | 2017-09-09 14:31 | SW/DCPLANNER ---
Tabitha Velázquez has called pillowcase cleaner (Maggi Bobby) and stated that she will speak with Dr Perez and wait for 48 hours before making any decision regarding Hospice.
--- NOTE | 2017-09-09 16:57 | PC.NURSE ---
PATIENT TESTED POSITIVE FOR C-DIFF TODAY, CONTACT ISOLATION SIGN PLACED ON DOOR. HAVE GIVEN PATIENT MORPHINE ONCE TODAY FOR SOB. PATIENT DENIES ANY PAIN. RESTING IN BED WITH FAMILY AT BEDSIDE. FAMILY TO MAKE DECISION IN 48 HOURS TO STATUS OF HOSPICE. PATIENT STILL ON 35% VENTI MASK AND STATING IN THE LOW 90'S. LUNG SOUNDS REMAIN RHONCHI BILATERALLY. PATIENT IS A/O X4. CALL LIGHT WITHIN REACH. WILL CONTINUE TO MONITOR.
--- NOTE | 2017-09-09 19:15 | PC.NURSE ---
PT DNR, I PLACED PURPLE DNR BRACELET ON PT; CODE STATUS VERIFIED ON CHART. REPORT FROM ALEN
--- NOTE | 2017-09-09 19:42 | PC.NURSE ---
REPORT GIVEN TO GEORGI MORALES
[2017-09-10] VITALS (12 sets, daily range): BP systolic 86–134; BP diastolic 53–63; PULSE 68–120; RESP 20–26; TEMP 36.2–36.8; O2SAT 91–94
--- NOTE | 2017-09-10 06:27 | PC.NURSE ---
PT SLEPT MOST ALL OF SHIFT. BILATERAL WHEEZES, 35% VENTI. OCCASSIONAL NON-PRODUCTIVE COUGH, REMINDED PT IF SHE BEGINS TO COUGH ANYTHING UP, THE SPECIMEN CUP IS ON BEDSIDE TABLE AND WE STILL NEED SPUTUM SPECIMEN. IV LEFT AC OCCLUDED, DISCONTINUED, PT'S SKIN VERY FRAGILE, USED MOISTENED CLOTH, BUT STILL RECEIVED SKIN TEAR. NON-ADHEISIVE DRESSING APPLIED. C/O ABD PAIN AT BEGINNING OF SHIFT, PAIN MED GIVEN. THIS AM C/O NAUSEA, SPOKE WITH LISET BREEN ORDERED AND GIVEN. PT DRINKING GINER DANGELO WELL. FAMILY AT BEDSIDE. PT ALERT AND ORIENTED. STABLE. WILL CONTINUE TO MONITOR. REPORT TO BE GIVEN TO ONCOMING NURSE.
[2017-09-10 07:09] LABS: Basophils % 0.2 % (0.1-2.0); Eosinophils % 0.1 % (0.1-12.0); Hematocrit 34.8 % (37.0-47.0); Hemoglobin 10.8 g/dL (12.2-16.2); Lymphocytes # 0.3 K/mm3 (0.7-4.5); Lymphocytes % 1.1 K/mm3 (10-50); Mean Corpuscular HGB Conc 31.1 g/dL (31.8-35.4); Mean Corpuscular Hemoglobin 29.1 pg (27.0-31.2); Mean Corpuscular Volume 93.7 fl (81-99); Mean Platelet Volume 9.4 fl (7.4-10.4); Monocytes # 0.7 K/mm3 (0.1-1.0); Monocytes % 2.4 % (1.7-9.3); Neutrophils # 26.5 K/mm3 (1.8-7.8); Neutrophils % 96.2 % (37.0-80.0); Platelet Count 140 K/mm3 (142-424); Red Blood Count 3.72 M/mm3 (4.20-5.40); Red Cell Distribution Width 14.9 % (11.5-17.5); White Blood Count 27.5 K/mm3 (4.8-10.8)
[2017-09-10 07:27] LABS: MANUAL DIFFERENTIAL MANUAL DIFFERENTIAL (MANUAL DIFF)
--- NOTE | 2017-09-10 07:29 | PC.NURSE ---
REPORT GIVEN TO Kala FRENCH W/C
[2017-09-10 07:39] LABS: Anion Gap 3.7 mEq/L (5-15); Blood Urea Nitrogen 54 mg/dL (7-18); Chloride 105 mmol/L (98-107); Creatinine Clearance Estimated 44 mL/min (0-300); Creatinine,Serum 0.81 mg/dL (0.55-1.02); Estimated Glomerular Filt Rate 68 ml/min (>60); GFR (African American) 82 ML/MIN (>60); Glucose 146 mg/dL (74-106); Potassium 3.7 mmoL/L (3.5-5.1); Sodium 147 mmol/L (136-145)
[2017-09-10 07:52] LABS: Carbon Dioxide 42 mmol/L (21.0-32.0)
[2017-09-10 08:38] LABS: Lymphocytes % 2 % (10-50); Monocytes % 1 % (2-9); Neutrophils % 94 % (42-76); Platelet Estimate Normal; Total Cells Counted 100
[2017-09-10 08:39] LABS: RBC Morphology Normal
--- NOTE | 2017-09-10 08:42 | HMH.ACPN2 ---
Internal Medicine - PN: Subj *Date: 09/10/17 *Time: 08:42 Interval history: feels better Exam Vital signs and Labs for Last 24 Hours: Temp Pulse Resp BP Pulse Ox 97.6 F 114 H 22 127/62 92 L 09/10/17 07:44 09/10/17 07:44 09/10/17 07:44 09/10/17 07:44 09/10/17 07:44 Laboratory Results - last 24 hr 09/08/17 15:05: Crossmatch (AHG) See Detail 09/09/17 09:45: Stl Aeromonas (PCR) Not detected, Stl C. cayetanensis PCR Not detected, Stool Rotavirus (PCR) Not detected, Stl Adenov F 40/41 PCR Not detected, Stool Astrovirus (PCR) Not detected, Stool Campylobacter PCR Not detected, Stl C.difficile Tox PCR Detected A, Stool Cryptosporidium PCR Not detected, Stl E.coli Shiga Tox PCR Not detected, Stool E coli O157 PCR Not detected, Stl Enterotoxigenic E PCR Not detected, Stool EPEC (PCR) Not detected, Stool EAEC (PCR) Not detected, Stl E. histolytica PCR Not detected, Stool Giardia Lamblia PCR Not detected, Stool Salmonella PCR Not detected, Stool Sapovirus (PCR) Not detected, Stl P. shigelloides PCR Not detected, Stl Shigella/EIEC PCR Not detected, St Y.enterocolitica PCR Not detected, Stool Vibrio (PCR) Not detected, Stl Vibrio cholerae PCR Not detected, Stl Norovirus GI/GII PCR Not detected 09/09/17 09:46: Chlamy pneumoniae PCR Not detected, Adenovirus (PCR) Not detected, B.parapertussis DNA PCR Not detected, Coronavirus OC43 (PCR) Not detected, Coronavirus HKU1 (PCR) Not detected, Coronavirus 229E (PCR) Not detected, Coronavirus NL63 (PCR) Not detected, Human Metapneumovir PCR Not detected, Influenza A (H1) PCR Not detected, Influ A (H1N1/09) PCR Not detected, Influenza A (H3) PCR Not detected, Influenza Type A (PCR) Not detected, Influenza Type B (PCR) Not detected, M. pneumoniae (PCR) Not detected, Parainfluenza 1 (PCR) Not detected, Parainfluenza 2 (PCR) Not detected, Parainfluenza 3 (PCR) Not detected, Parainfluenza 4 (PCR) Not detected, RSV (PCR) Not detected, Entero/Rhino (PCR) Not detected 09/10/17 06:30: WBC 27.5 H* D, RBC 3.72 L D, Hgb 10.8 L, Hct 34.8 L, MCV 93.7, MCH 29.1, MCHC 31.1 L, RDW 14.9, Plt Count 140 L, MPV 9.4, Neut % (Auto) 96.2 H, Lymph % (Auto) 1.1 L, [place] % (Auto) 2.4, Eos % (Auto) 0.1, Baso % (Auto) 0.2, Neut # (Auto) 26.5 H, Lymph # (Auto) 0.3 L, [place] # (Auto) 0.7, Eos # (Auto) 0.0, Baso # (Auto) 0.0, Total Counted 100, Neutrophils % (Manual) 94 H, Band Neutrophils % 3.0, Lymphocytes % (Manual) 2 L, Monocytes % (Manual) 1 L, Platelet Estimate Normal, RBC Morphology Normal 09/10/17 06:30: Sodium 147 H, Potassium 3.7, Chloride 105, Carbon Dioxide 42 H*, Anion Gap 3.7 L, BUN 54 H D, Creatinine 0.81, Estimated Creat Clear 44, Estimated GFR 68, Est GFR ( Amer) 82, Glucose 146 H I & O for Last 24 hours: Intake & Output 09/07/17 09/08/17 09/09/17 09/10/17 11:59 11:59 11:59 11:59 Intake Total 600 / 600 50 / 50 140 / 140 Balance 600 / 600 50 / 50 140 / 140 Weight 136 lb 7.458 oz 127 lb 3 oz 135 lb 9.349 oz - Constitutional no acute distress, thin - *Routine HEENT Exam Head: Present: normocephalic Eye: Present: EOMI, PERRL. Absent: conjunctival icterus ENT: Present: mucous membranes dry - *Routine Neck Exam Absent: JVD - *Routine Respiratory Exam Present: prolonged expiratory phase, wheezes, distant breath sounds. Absent: respiratory distress - *Routine Cardiovascular Exam Present: RRR, murmur, S4 - *Routine Abdominal Exam Present: soft - *Routine Extremities Exam Present: edema. Absent: calf tenderness - *Routine Skin Exam Present: intact - *Routine Neurological Exam Present: alert, oriented X3, CN II-XII intact - Routine Psychiatric Exam Present: normal affect Assessment and Plan (1) Pneumonia Current visit: Yes Status: Acute Category: Medical Code(s): J18.9 - Pneumonia, unspecified organism (2) COPD exacerbation Current visit: Yes Status: Acute Category: Medical Code(s): J44.1 - Chronic obstructive pulmonary disease with (acute) exacerbation (3) A
--- NOTE | 2017-09-10 08:46 | P.PN_ITS ---
Internal Medicine - PN: Subj *Date: 09/10/17 *Time: 08:42 Interval history: feels better Exam Vital signs and Labs for Last 24 Hours: Temp Pulse Resp BP Pulse Ox 97.6 F 114 H 22 127/62 92 L 09/10/17 07:44 09/10/17 07:44 09/10/17 07:44 09/10/17 07:44 09/10/17 07:44 Laboratory Results - last 24 hr 09/08/17 15:05: Crossmatch (AHG) See Detail 09/09/17 09:45: Stl Aeromonas (PCR) Not detected, Stl C. cayetanensis PCR Not detected, Stool Rotavirus (PCR) Not detected, Stl Adenov F 40/41 PCR Not detected, Stool Astrovirus (PCR) Not detected, Stool Campylobacter PCR Not detected, Stl C.difficile Tox PCR Detected A, Stool Cryptosporidium PCR Not detected, Stl E.coli Shiga Tox PCR Not detected, Stool E coli O157 PCR Not detected, Stl Enterotoxigenic E PCR Not detected, Stool EPEC (PCR) Not detected , Stool EAEC (PCR) Not detected, Stl E. histolytica PCR Not detected, Stool Giardia Lamblia PCR Not detected, Stool Salmonella PCR Not detected, Stool Sapovirus (PCR) Not detected, Stl P. shigelloides PCR Not detected, Stl Shigella /EIEC PCR Not detected, St Y.enterocolitica PCR Not detected, Stool Vibrio (PCR ) Not detected, Stl Vibrio cholerae PCR Not detected, Stl Norovirus GI/GII PCR Not detected 09/09/17 09:46: Chlamy pneumoniae PCR Not detected, Adenovirus (PCR) Not detected, B.parapertussis DNA PCR Not detected, Coronavirus OC43 (PCR) Not detected, Coronavirus HKU1 (PCR) Not detected, Coronavirus 229E (PCR) Not detected, Coronavirus NL63 (PCR) Not detected, Human Metapneumovir PCR Not detected, Influenza A (H1) PCR Not detected, Influ A (H1N1/09) PCR Not detected , Influenza A (H3) PCR Not detected, Influenza Type A (PCR) Not detected, Influenza Type B (PCR) Not detected, M. pneumoniae (PCR) Not detected, Parainfluenza 1 (PCR) Not detected, Parainfluenza 2 (PCR) Not detected, Parainfluenza 3 (PCR) Not detected, Parainfluenza 4 (PCR) Not detected, RSV (PCR ) Not detected, Entero/Rhino (PCR) Not detected 09/10/17 06:30: WBC 27.5 H* D, RBC 3.72 L D, Hgb 10.8 L, Hct 34.8 L, MCV 93.7, MCH 29.1, MCHC 31.1 L, RDW 14.9, Plt Count 140 L, MPV 9.4, Neut % (Auto) 96.2 H , Lymph % (Auto) 1.1 L, [place] % (Auto) 2.4, Eos % (Auto) 0.1, Baso % (Auto) 0.2, Neut # (Auto) 26.5 H, Lymph # (Auto) 0.3 L, [place] # (Auto) 0.7, Eos # (Auto) 0.0 , Baso # (Auto) 0.0, Total Counted 100, Neutrophils % (Manual) 94 H, Band Neutrophils % 3.0, Lymphocytes % (Manual) 2 L, Monocytes % (Manual) 1 L, Platelet Estimate Normal, RBC Morphology Normal 09/10/17 06:30: Sodium 147 H, Potassium 3.7, Chloride 105, Carbon Dioxide 42 H* , Anion Gap 3.7 L, BUN 54 H D, Creatinine 0.81, Estimated Creat Clear 44, Estimated GFR 68, Est GFR ( Amer) 82, Glucose 146 H I & O for Last 24 hours: Intake & Output 09/07/17 09/08/17 09/09/17 09/10/17 11:59 11:59 11:59 11:59 Intake Total 600 / 600 50 / 50 140 / 140 Balance 600 / 600 50 / 50 140 / 140 Weight 136 lb 7.458 oz 127 lb 3 oz 135 lb 9.349 oz - Constitutional no acute distress, thin - *Routine HEENT Exam Head: Present: normocephalic Eye: Present: EOMI, PERRL. Absent: conjunctival icterus ENT: Present: mucous membranes dry - *Routine Neck Exam Absent: JVD - *Routine Respiratory Exam Present: prolonged expiratory phase, wheezes, distant breath sounds. Absent: respiratory distress - *Routine Cardiovascular Exam Present: RRR, murmur, S4 - *Routine Abdominal Exam Present: soft - *Routine Extremities Exam Present: edema. Absent: calf tenderness - *Routine Skin Exam Present: intact - *Routine Zenia
--- NOTE | 2017-09-10 09:00 | XR_ITS ---
XR chest portable HISTORY: Follow-up pneumonia, shortness of breath ITS.REASON: sob ORDERING PHYSICIAN: Phu Perez MD PATIENT AGE: 82 years COMPARISON: 09/07/2017 FINDINGS: There is moderate patient rotation somewhat more prominent on today's study compared to the previous exam. There remains consolidation in the left lower lobe with effusion. The consolidation may be slightly improved. Developing density in the right upper lobe consistent with pneumonia with mild atelectatic changes in the right lung base. Parenchymal opacity is present in the left lower lung zone laterally 2 cm consistent with a dense area of pneumonia versus parenchymal scarring or developing pulmonary nodule. There are trace bilateral effusions. Normal heart size. IMPRESSION: Bilateral pneumonia worse on the right and slightly improved on the left with 2 cm parenchymal opacity in the lingula laterally which could be due to an area of dense consolidation, fibrosis, or developing nodule
--- NOTE | 2017-09-10 09:09 | CT_ITS ---
CT angio chest HISTORY: Shortness of air, abnormal chest x-ray, pneumonia ITS.REASON: SOA, R/O PE ORDERING PHYSICIAN: Phu Perez MD PATIENT AGE: 82 years TECHNIQUE: Axial images obtained following the administration of 75 mL of Isovue 370 . Sagittal, and coronal reformatted images are also generated and reviewed. COMPARISON: None FINDINGS: There is mild degree of motion artifact. No central pulmonary embolus is evident. No evidence of aortic aneurysm or dissection. There are coronary artery calcifications with a normal heart size. No mediastinal or hilar mass. Centrilobular and paraseptal emphysematous changes are present. There is biapical pleural thickening. There are multiple peripheral areas of parenchymal opacification within the right upper lobe posterior laterally, right upper lobe posteriorly and inferiorly, right middle lobe, posterior aspect right lower lobe, and lingula. These may represent areas of pneumonia. The lingular opacity is somewhat more: Less than and measures approximately 2 cm and could represent an area of pneumonia, scarring, or even neoplasm. Follow-up suggested to confirm resolution or stability of the above-mentioned lesions. There are trace bilateral pleural effusions. There is consolidation/volume loss in the left lower lobe posteriorly. There is moderate thoracic scoliosis convex right. There has been prior vertebral plasty at T11 with wedge compression changes involving T11 and T12 presumed old. Upper abdominal images show moderate prominence of the right renal pelvis. There is fluid density anterior to the right lobe of the liver and small amount fluid is present in the perisplenic region inferiorly. IMPRESSION: 1. No evidence of pulmonary embolus. 2. Centrilobular and paraseptal emphysematous changes with scattered areas of scarring. 3. Scattered parenchymal opacities which are mostly peripheral and may be due to areas of pneumonia and/or postinflammatory change. 2 cm opacity in the lingula could also be related to a neoplasm. Follow-up may confirm stability. 4. Consolidation/volume loss of the left lower lobe posteriorly with small bilateral pleural effusions
--- NOTE | 2017-09-10 09:09 | CA_ITS ---
PROCEDURE: 2-D M-mode and color Doppler study INDICATIONS FOR THE TEST: Chest pain COPDX Heart Murmur Tobacco SmokingEX Palpitations Fatigue Syncope Edema HypertensionXDiabetes Mellitus Rheumatic Fever SOBXDOE Obesity Hyperlipidemia Family History HD Additional History PNEUMONIA,AF,CHF TDS TLS SECONDARY TO COPD PATIENT INFORMATION HEIGHT: 64 WEIGHT:135 GENDER: Female B/P:127/62 2-D/M-MODE INTERPRETATION: 2-D MEASUREMENTS OBSERVED VALUES IN CMS Right Ventricular Dimension (RVDd) 2.5 Interventricular Septum (Thickness)(IVsd) .9 Left Ventricular Internal Dimensions(LVIDd) 3.3 Left Ventricular Posterior Wall (Thickness)(LVPWd) .8 Aortic Root 2.8 Aortic Cusp Separation 1.9 Left Atrial Dimensions (LAD) 3.1 2D 1. Technically difficult study because of the patient's factor and poor acoustic windows 2. The left atrium is mildly enlarged, left ventricle is normal size, there is hyperdynamic left ventricular systolic function, visually estimated ejection fraction over 65% with no obvious regional wall motion abnormality, endocardial surfaces are poorly visualized. 3. The right atrium and right ventricle are moderately enlarged with normal contractility. 4. The aortic valve is thickened and calcified leaflet can't display mobility. 5. The mitral valve has mitral annular calcification, leaflets are minimally thickened. 6. The tricuspid and pulmonic valve is poorly visualized. 7. There is trivial pericardial effusion noted. DOPPLER INTERROGATION: Doppler interrogation of the aortic, mitral and tricuspid valvular presence of mild mitral and tricuspid regurgitation, tricuspid regurgitant jet velocity is insufficient for calculation of the right ventricular systolic pressure, diastolic parameters are inconclusive. CONCLUSION: 1. Technically difficult and limited study as described above 2. Mildly enlarged left atrium, normal left ventricular size, hyperdynamic left ventricular systolic function, visually estimated ejection fraction over 65% with no obvious regional wall motion abnormality, endocardial surfaces are poorly visualized. 3. Moderately enlarged right atrium and right ventricle, contractility of the right ventricle is normal. 4. Mild mitral and tricuspid regurgitation 5. Trivial pericardial effusion noted.
[2017-09-10 09:36] LABS: Thyroid Stimulating Hormone 0.34 uIU/ml (0.358-3.740)
--- NOTE | 2017-09-10 10:59 | PC.NURSE ---
at 0950 patient had mg placed. patient had urinated before placement. when mg place urine came back but had none in bag at this time. lot number was [id number]. 16 armenian. tolerated it well.
--- NOTE | 2017-09-10 11:55 | HMH.CNCARD ---
History of Present Illness Consult date: 09/10/17 Requesting physician: Phu Perez Consult reason: shortness of breath Chief complaint: SOA Additional Medical History:: 1. Hypertension 2. Tobacco use with chronic obstructive pulmonary disease requiring chronic oxygen therapy and chronic prednisone therapy 3. Recent back surgery, 07/2017 4. Questionable history of atrial fibrillation 5. Questionable history of congestive heart failure History of present illness: 82-year-old white female admitted for increasing shortness of breath over the last several days. Patient recently admitted to [facility] for rehab after prolonged hospital stay post back surgery. Patient denies any chest pain. She does have chest tightness. Patient does have a history of hypertension but denies history of diabetes. There is a question of congestive heart failure and cardiology was consulted for evaluation and recommendations. Patient's BNP is less than 100. Chest x-ray shows no evidence of CHF but does show a new left lower lobe pneumonia for which she is on antibiotics. [facility] History Medical History: Reports:: Atrial Fibrillation, Congestive Heart Failure, Hypertension Denies:: Cancer, Diabetes Mellitus Type 1, Diabetes Mellitus Type 2, MRSA Other Medical History: Reports: Anemia, Arthritis, Cataracts, Hoarseness, Sinus Problems, Thyroid Disease Other Surgeries: Yes: Colonoscopy, EGD, Hysterectomy-Total Amputation: No Fractures: No - *Social History Educational Level: Attended High School Smoking Status: Former smoker Tobacco Type: cigarettes Alcohol Intake: never Occupational Status: retired Housing: longterm - Psychiatric History Expresses thoughts of harming self/others: None Suicide Plan Description: No Plan *Family Hx:: Anemia, Hyperlipidemia, Hypertension Meds Home Medications Medication Instructions Recorded Confirmed Type Aspirin [Aspir 81] 81 mg PO DAILY 09/07/17 09/07/17 History Budesonide/Formoterol Fumarate 2 puffs IH BID 09/07/17 09/08/17 History [Symbicort 80-4.5 Mcg Inhaler] Fluconazole [Diflucan 100mg tablet] 100 mg PO DAILY 09/07/17 09/08/17 History Fluconazole [Diflucan 200mg tablet] 200 mg PO DAILY 09/07/17 09/07/17 History Furosemide [Lasix 20mg tab] 20 mg PO DAILY 09/07/17 09/07/17 History Pantoprazole Sodium [Protonix 40mg 40 mg PO DAILY 09/07/17 09/08/17 History tablet] Tiotropium [place] [Spiriva 2 puff IH DAILY 09/07/17 09/08/17 History 18mcg/puff inhaler] dilTIAZem HCl [Cardizem] 30 mg PO Q6H 09/07/17 09/08/17 History levoFLOXacin [Levaquin 750mg 750 mg PO DAILY 09/07/17 09/07/17 History tablet] predniSONE [Deltasone 5mg 20 mg PO DAILY 09/07/17 09/08/17 History tablet] Guaifenesin/Dextromethorphan 10 ml PO Q6HP PRN 09/08/17 09/08/17 History [Robitussin Cough-Chest Dm Liq] Ipratropium/Albuterol Sulfate 3 ml IH Q4HP PRN 09/08/17 09/08/17 History [Duoneb 3mL neb] Polyethylene Glycol 3350 [PEG 3350 17 gm PO DAILYP PRN 09/08/17 09/08/17 History 17gm Packet] Allergies Allergy/AdvReac Type Severity Reaction Status Date / Time No Known Allergies Allergy Unverified 06/17/17 14:18 Review of Systems - *Cardiovascular Reports shortness of breath - *Respiratory Reports shortness of breath - *Gastrointestinal Denies abdominal pain - *Genitourinary Denies blood in urine - *Musculoskeletal Reports joint pain - *Neurologic Reports weakness, Denies behavioral changes, Denies confusion Exam Vital signs and Labs for Last 24 Hours: Temp Pulse Resp BP Pulse Ox 98.2 F 113 H 24 134/56 93 L 09/10/17 11:38 09/10/17 11:38 09/10/17 11:38 09/10/17 11:38 09/10/17 11:38 Laboratory Results - last 24 hr 09/08/17 15:05: Crossmatch (AHG) See Detail 09/09/17 09:45: Stl Aeromonas (PCR) Not detected, Stl C. cayetanensis PCR Not detected, Stool Rotavirus (PCR) Not detected, Stl Adenov F 40/41 PCR Not detecte
--- NOTE | 2017-09-10 11:59 | P.CONS_ITS ---
History of Present Illness Consult date: 09/10/17 Requesting physician: Phu Perez Consult reason: shortness of breath Chief complaint: SOA Additional Medical History:: 1. Hypertension 2. Tobacco use with chronic obstructive pulmonary disease requiring chronic oxygen therapy and chronic prednisone therapy 3. Recent back surgery, 07/2017 4. Questionable history of atrial fibrillation 5. Questionable history of congestive heart failure History of present illness: 82-year-old white female admitted for increasing shortness of breath over the last several days. Patient recently admitted to [facility] for rehab after prolonged hospital stay post back surgery. Patient denies any chest pain. She does have chest tightness. Patient does have a history of hypertension but denies history of diabetes. There is a question of congestive heart failure and cardiology was consulted for evaluation and recommendations. Patient's BNP is less than 100. Chest x-ray shows no evidence of CHF but does show a new left lower lobe pneumonia for which she is on antibiotics. [facility] History Medical History: Reports:: Atrial Fibrillation, Congestive Heart Failure, Hypertension Denies:: Cancer, Diabetes Mellitus Type 1, Diabetes Mellitus Type 2, MRSA Other Medical History: Reports: Anemia, Arthritis, Cataracts, Hoarseness, Sinus Problems, Thyroid Disease Other Surgeries: Yes: Colonoscopy, EGD, Hysterectomy-Total Amputation: No Fractures: No - *Social History Educational Level: Attended High School Smoking Status: Former smoker Tobacco Type: cigarettes Alcohol Intake: never Occupational Status: retired Housing: [facility] - Psychiatric History Expresses thoughts of harming self/others: None Suicide Plan Description: No Plan *Family Hx:: Anemia, Hyperlipidemia, Hypertension Meds Home Medications Medication Instructions Recorded Confirmed Type Aspirin [Aspir 81] 81 mg PO DAILY 09/07/17 09/07/17 History Budesonide/Formoterol Fumarate 2 puffs IH BID 09/07/17 09/08/17 History [Symbicort 80-4.5 Mcg Inhaler] Fluconazole [Diflucan 100mg tablet] 100 mg PO DAILY 09/07/17 09/08/17 History Fluconazole [Diflucan 200mg tablet] 200 mg PO DAILY 09/07/17 09/07/17 History Furosemide [Lasix 20mg tab] 20 mg PO DAILY 09/07/17 09/07/17 History Pantoprazole Sodium [Protonix 40mg 40 mg PO DAILY 09/07/17 09/08/17 History tablet] Tiotropium [place] [Spiriva 2 puff IH DAILY 09/07/17 09/08/17 History 18mcg/puff inhaler] dilTIAZem HCl [Cardizem] 30 mg PO Q6H 09/07/17 09/08/17 History levoFLOXacin [Levaquin 750mg 750 mg PO DAILY 09/07/17 09/07/17 History tablet] predniSONE [Deltasone 5mg 20 mg PO DAILY 09/07/17 09/08/17 History tablet] Guaifenesin/Dextromethorphan 10 ml PO Q6HP PRN 09/08/17 09/08/17 History [Robitussin Cough-Chest Dm Liq] Ipratropium/Albuterol Sulfate 3 ml IH Q4HP PRN 09/08/17 09/08/17 History [Duoneb 3mL neb] Polyethylene Glycol 3350 [PEG 3350 17 gm PO DAILYP PRN 09/08/17 09/08/17 History 17gm Packet] Allergies Allergy/AdvReac Type Severity Reaction Status Date / Time No Known Allergies Allergy Unverified 06/17/17 14:18 Review of Systems - *Cardiovascular Reports shortness of breath - *Respiratory Reports shortness of breath - *Gastrointestinal Denies abdominal pain - *Genitourinary Denies blood in urine
[2017-09-10 12:13] LABS: Microscopic,Cath URINE MICROSCOPIC (MICROSCOPIC)
--- NOTE | 2017-09-10 12:19 | PC.NURSE ---
PLACED NEW MORALES AT THIS TIME. 16 KHMER LOT NUMBER [id number]. TOLERATED WELL, INITIAL OUTPUT WAS 900ML WILL ADD THIS INTO INTAKE INTERVENTION AT END OF SHIFT. SENT DOWN URINE SAMPLE
[2017-09-10 12:30] LABS: Appearance,Urine/Cath CLEAR (Clear); Blood, Urine/Cath Negative (Negative); Color,Urine/Cath YELLOW (Yellow); Glucose,Urine/Cath (UA) Negative (Negative); Ketones,Urine/Cath Negative (Negative); Leukocyte Esterase,Cath Negative (Negative); Nitrate,Cath Negative (Negative); Protein,Urine/Cath TRACE (Negative); Specific Gravity, Urine/Cath 1.025 (1.005-1.030); Urobilinogen,Cath 0.2 EU/dl (0.2)
[2017-09-10 12:56] LABS: Bacteria,Urine/Cath 2+ /lpf; Hyaline Casts,Urine/Cath O #/lpf (0); Squamous Epithelial Ur./Cath Occasional #/hpf (0-5)
--- NOTE | 2017-09-10 13:25 | DIET.NUTRFU ---
Pt is on a low sodium ground consistency diet with supplements of Ensure tid. PO intakes remain poor, 0-5% of meals. She reports that she has no appetite. Pt has been dx with c diff. Provided pt with alternative nutritional supplement, Breeze, to try. will follow for acceptance to supplement.
[2017-09-10 14:23] LABS: Bilirubin,Cath Negative (Negative)
--- NOTE | 2017-09-10 17:17 | SW/DCPLANNER ---
Updated patient information has been faxed to [facility]a Vel[facility]quez at [facility].
[2017-09-10 17:35] LABS: Vancomycin,Trough 11.1 mcg/ml (10.0-20.0)
--- NOTE | 2017-09-10 18:51 | PC.NURSE ---
PATIENT HAS DONE WELL THIS SHIFT. SHE HAS BEEN AWAKE TALKING AND JOKING WITH FAMILY AND STAFF. NOTED TO HAVE SOME CRACKLES AND RONCHI. DID PLACE MORALES AND URINE REMAINS TEA COLORED. SHE TOLERATED CT AND STUDIES WELL TODAY. CURRENTLY SLEEPING WITH FAMILY AT BEDSIDE. VERY FEW COMPLAINTS. DOES APPEAR SOB AT TIMES. REMAINS ON VENTI MASK AT 50%. HER VSS WILL CONTINUE TO MONITOR.
--- NOTE | 2017-09-10 19:13 | PC.NURSE ---
REPORT GIVEN TO Nela LANE
[2017-09-11] VITALS (12 sets, daily range): BP systolic 127–154; BP diastolic 62–88; PULSE 94–116; RESP 16–24; TEMP 36.3–36.8; O2SAT 80–94
--- NOTE | 2017-09-11 03:34 | PC.NURSE ---
no changes noted from previous assessment, pt has rested most of shift, pt c/o dry heaves once this shift, zofran was administered per MAR, symptoms relieved, pt is tolerating 50% venti well, continuous pulse oximeter reading at or above 90 with an occasional drop to the mid 80's, wheezes noted to auscultation, intermittent non productive cough noted, abdomen appears distended and pt reports mild tenderness in abdomen made worse by cough, mg patent and draining tea colored urine, no acute distress noted at this time, call light in reach, family at bedside, will continue to monitor.
--- NOTE | 2017-09-11 08:00 | HMH.ACPN ---
Internal Medicine - PN: Subj *Date: 09/11/17 *Time: 08:00 Exam Vital signs and Labs for Last 24 Hours: Temp Pulse Resp BP Pulse Ox 98.3 F 96 H 24 138/75 89 L 09/11/17 03:52 09/11/17 04:25 09/11/17 03:52 09/11/17 03:52 09/11/17 04:25 Laboratory Results - last 24 hr 09/10/17 06:30: Total Counted 100, Neutrophils % (Manual) 94 H, Band Neutrophils % 3.0, Lymphocytes % (Manual) 2 L, Monocytes % (Manual) 1 L, Platelet Estimate Normal, RBC Morphology Normal 09/10/17 06:30: B-Natriuretic Peptide 87 09/10/17 06:30: TSH 0.34 L, Thyroxine (T4) 4.0 L 09/10/17 12:00: Urine Color Yellow, Urine Appearance Clear, Urine pH 6.0, Ur Specific [place] 1.025, Urine Protein Trace, Urine Glucose (UA) Negative, Urine Ketones Negative, Urine Blood Negative, Urine Nitrate Negative, Urine Bilirubin Negative, Urine Urobilinogen 0.2, Ur Leukocyte Esterase Negative, Urine RBC None, Urine WBC 3-5, Ur Squamous Epith Cells Occasional, Urine Bacteria 2+ A, Hyaline Casts O 09/10/17 17:00: Vancomycin Trough 11.1 I & O for Last 24 hours: Intake & Output 09/08/17 09/09/17 09/10/17 09/11/17 23:59 23:59 23:59 23:59 Intake Total 170 / 170 1250 / 1250 110 / 110 Output Total 1500 / 1500 550 / 550 Balance 170 / 170 -250 / -250 -440 / -440 Weight 61.9 kg 57.691 kg 61.5 kg 59.988 kg Assessment and Plan (1) Pneumonia Current visit: Yes Status: Acute Category: Medical Code(s): J18.9 - Pneumonia, unspecified organism (2) COPD exacerbation Current visit: Yes Status: Acute Category: Medical Code(s): J44.1 - Chronic obstructive pulmonary disease with (acute) exacerbation (3) Anemia Current visit: Yes Status: Acute Category: Medical Code(s): D64.9 - Anemia, unspecified (4) History of hypertension Current visit: Yes Status: Acute Category: Medical Code(s): Z86.79 - Personal history of other diseases of the circulatory system (5) Hyperthyroidism Current visit: Yes Status: Acute Category: Medical Code(s): E05.90 - Thyrotoxicosis, unspecified without thyrotoxic crisis or storm The patient's infection will respond to the chosen ABx?: Yes Is the patient receiving the right drug, dose, and route?: Yes Could a more targeted ABx be ordered?: No (FLAGYL ADDED TO COVER C.DIFF)
--- NOTE | 2017-09-11 08:28 | P.PN_ITS ---
Subjective Date: 09/11/17 Time: 08:26 Principal diagnosis: SOA Interval history: Still very SOA. Less interactive today. CTA of chest yesterday showed no PE. Suspicious nodule noted but in discussing with family, this is not new and patient has expressed desire for no treatment in past. Echo shows normal LV size and function. Exam Vital signs and Labs for Last 24 Hours: Temp Pulse Resp BP Pulse Ox 97.9 F 100 H 18 139/62 90 L 09/11/17 08:00 09/11/17 08:00 09/11/17 08:00 09/11/17 08:00 09/11/17 08:00 Laboratory Results - last 24 hr 09/10/17 06:30: Total Counted 100, Neutrophils % (Manual) 94 H, Band Neutrophils % 3.0, Lymphocytes % (Manual) 2 L, Monocytes % (Manual) 1 L, Platelet Estimate Normal, RBC Morphology Normal 09/10/17 06:30: B-Natriuretic Peptide 87 09/10/17 06:30: TSH 0.34 L, Thyroxine (T4) 4.0 L 09/10/17 12:00: Urine Color Yellow, Urine Appearance Clear, Urine pH 6.0, Ur Specific [place] 1.025, Urine Protein Trace, Urine Glucose (UA) Negative, Urine Ketones Negative, Urine Blood Negative, Urine Nitrate Negative, Urine Bilirubin Negative, Urine Urobilinogen 0.2, Ur Leukocyte Esterase Negative, Urine RBC None , Urine WBC 3-5, Ur Squamous Epith Cells Occasional, Urine Bacteria 2+ A, Hyaline Casts O 09/10/17 17:00: Vancomycin Trough 11.1 I & O for Last 24 hours: Intake & Output 09/08/17 09/09/17 09/10/17 09/11/17 11:59 11:59 11:59 11:59 Intake Total 600 / 600 50 / 50 340 / 340 1020 / 1020 Output Total 400 / 400 1650 / 1650 Balance 600 / 600 50 / 50 -60 / -60 -630 / -630 Weight 136 lb 7.458 oz 127 lb 3 oz 135 lb 9.349 oz 132 lb 4 oz - *Routine Respiratory Exam Present: rhonchi, diminished air movement - *Routine Cardiovascular Exam Present: RRR Progress Note: A&P (1) Pneumonia Status: Acute Current Visit: Yes (2) COPD exacerbation Status: Acute Current Visit: Yes (3) Anemia Status: Acute Current Visit: Yes (4) History of hypertension Status: Acute Current Visit: Yes (5) Hyperthyroidism Status: Acute Current Visit: Yes
[2017-09-11 08:33] LABS: Basophils % 0.1 % (0.1-2.0); Eosinophils # 0.1 K/mm3 (0.0-0.4); Eosinophils % 0.3 % (0.1-12.0); Hematocrit 32.7 % (37.0-47.0); Hemoglobin 10.3 g/dL (12.2-16.2); Lymphocytes # 0.2 K/mm3 (0.7-4.5); Lymphocytes % 0.8 K/mm3 (10-50); Mean Corpuscular HGB Conc 31.6 g/dL (31.8-35.4); Mean Corpuscular Hemoglobin 29.2 pg (27.0-31.2); Mean Corpuscular Volume 92.5 fl (81-99); Mean Platelet Volume 9.3 fl (7.4-10.4); Monocytes # 0.4 K/mm3 (0.1-1.0); Monocytes % 1.6 % (1.7-9.3); Neutrophils # 24.7 K/mm3 (1.8-7.8); Neutrophils % 97.1 % (37.0-80.0); Platelet Count 100 K/mm3 (142-424); Red Blood Count 3.54 M/mm3 (4.20-5.40); Red Cell Distribution Width 14.7 % (11.5-17.5); White Blood Count 25.4 K/mm3 (4.8-10.8)
[2017-09-11 08:41] LABS: MANUAL DIFFERENTIAL MANUAL DIFFERENTIAL (MANUAL DIFF)
[2017-09-11 08:47] LABS: Anion Gap 5.3 mEq/L (5-15); Blood Urea Nitrogen 42 mg/dL (7-18); Chloride 107 mmol/L (98-107); Creatinine Clearance Estimated 42 mL/min (0-300); Estimated Glomerular Filt Rate 96 ml/min (>60); GFR (African American) 116 ML/MIN (>60); Glucose 147 mg/dL (74-106); Potassium 3.3 mmoL/L (3.5-5.1)
--- NOTE | 2017-09-11 08:48 | CT_ITS ---
CT abdomen pelvis wo con CLINICAL INDICATION: ITS.REASON: abd pain ORDERING PHYSICIAN: Phu Perez MD PATIENT AGE: 82 years COMPARISON: None TECHNIQUE: Axial images obtained with sagittal and coronal reformats. PROCEDURE: Oral Contrast: None IV Contrast: None . FINDINGS: Contrast is present within the renal collecting system from a previous CT scan of 09/10/2017. Lung base images show consolidation in the left lung base posteriorly with air bronchograms consistent with pneumonia with small effusion. Increasing parenchymal opacification also noted in the right middle lobe anterolaterally and in the right lung base posteriorly. Incompletely imaged lingular opacity also noted. Coronary artery calcifications are present. There is a small pericardial effusion. There is perihepatic fluid and a small amount perisplenic fluid. No focal liver lesion apparent. The adrenal glands and pancreas have an unremarkable appearance other than pancreatic atrophy. The left kidney has an unremarkable appearance. There is dilatation of the right renal pelvis and calyces consistent with a UPJ stenosis. There is diffuse colonic diverticulosis of the descending and sigmoid colon no evidence of diverticulitis. There is moderate gaseous distention of the ascending and transverse colon and splenic flexure. There is some layering of stool within the ascending colon. No evidence of small bowel obstruction. No free air apparent. Small amount fluid is present in the pelvis. There has been prior vertebral plasty at T11 with wedge compression changes of T12 and mild lumbar scoliosis convex left. IMPRESSION: 1. Moderate amount of ascites with fluid in the perihepatic and perisplenic region and within the pelvis 2. Bilateral lower lobe consolidation/pneumonia with effusions. 3. 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 Mild diffuse gaseous colonic distention with colonic diverticulosis. No evidence of rectal fecal impaction
[2017-09-11 08:51] LABS: Sodium 151 mmol/L (136-145)
[2017-09-11 08:52] LABS: Carbon Dioxide 42 mmol/L (21.0-32.0)
--- NOTE | 2017-09-11 08:53 | HMH.ACPN2 ---
Internal Medicine - PN: Subj *Date: 09/11/17 *Time: 08:53 Exam Vital signs and Labs for Last 24 Hours: Temp Pulse Resp BP Pulse Ox 97.9 F 100 H 18 139/62 90 L 09/11/17 08:00 09/11/17 08:00 09/11/17 08:00 09/11/17 08:00 09/11/17 08:00 Laboratory Results - last 24 hr 09/10/17 06:30: B-Natriuretic Peptide 87 09/10/17 06:30: TSH 0.34 L, Thyroxine (T4) 4.0 L 09/10/17 12:00: Urine Color Yellow, Urine Appearance Clear, Urine pH 6.0, Ur Specific [place] 1.025, Urine Protein Trace, Urine Glucose (UA) Negative, Urine Ketones Negative, Urine Blood Negative, Urine Nitrate Negative, Urine Bilirubin Negative, Urine Urobilinogen 0.2, Ur Leukocyte Esterase Negative, Urine RBC None, Urine WBC 3-5, Ur Squamous Epith Cells Occasional, Urine Bacteria 2+ A, Hyaline Casts O 09/10/17 17:00: Vancomycin Trough 11.1 09/11/17 08:20: WBC 25.4 H*, RBC 3.54 L, Hgb 10.3 L, Hct 32.7 L, MCV 92.5, MCH 29.2, MCHC 31.6 L, RDW 14.7, Plt Count 100 L D, MPV 9.3, Neut % (Auto) 97.1 H, Lymph % (Auto) 0.8 L, [place] % (Auto) 1.6 L, Eos % (Auto) 0.3, Baso % (Auto) 0.1, Neut # (Auto) 24.7 H, Lymph # (Auto) 0.2 L, [place] # (Auto) 0.4, Eos # (Auto) 0.1, Baso # (Auto) 0.0 I & O for Last 24 hours: Intake & Output 09/08/17 09/09/17 09/10/17 09/11/17 11:59 11:59 11:59 11:59 Intake Total 600 / 600 50 / 50 340 / 340 1020 / 1020 Output Total 400 / 400 1650 / 1650 Balance 600 / 600 50 / 50 -60 / -60 -630 / -630 Weight 136 lb 7.458 oz 127 lb 3 oz 135 lb 9.349 oz 132 lb 4 oz - Constitutional no acute distress - *Routine HEENT Exam Head: Present: normocephalic Eye: Present: PERRL ENT: Present: mucous membranes moist - *Routine Neck Exam Present: supple, full ROM - *Routine Respiratory Exam Present: rhonchi, crackles, diminished air movement - *Routine Cardiovascular Exam Present: RRR - *Routine Abdominal Exam Present: tenderness - *Routine Extremities Exam Present: full ROM - *Routine Neurological Exam Present: alert, oriented X3 - Routine Psychiatric Exam Present: normal affect Assessment and Plan (1) Pneumonia Current visit: Yes Status: Acute Category: Medical Code(s): J18.9 - Pneumonia, unspecified organism (2) COPD exacerbation Current visit: Yes Status: Acute Category: Medical Code(s): J44.1 - Chronic obstructive pulmonary disease with (acute) exacerbation (3) Anemia Current visit: Yes Status: Acute Category: Medical Code(s): D64.9 - Anemia, unspecified (4) History of hypertension Current visit: Yes Status: Acute Category: Medical Code(s): Z86.79 - Personal history of other diseases of the circulatory system (5) Hyperthyroidism Current visit: Yes Status: Acute Category: Medical Code(s): E05.90 - Thyrotoxicosis, unspecified without thyrotoxic crisis or storm
[2017-09-11 10:06] LABS: Lymphocytes % 1 % (10-50); Monocytes % 1 % (2-9); Neutrophils % 98 % (42-76); Platelet Estimate Slight Decrease; RBC Morphology Normal; Total Cells Counted 100
--- NOTE | 2017-09-11 10:59 | HMH.PHACONS ---
- Pharmacy Consult Date: 09/11/17 Time: 10:59 Referring provider: DR. SHIPMAN Reason for Consult:: VANCOMYCIN TROUGH LEVEL Allergies and ADEs:: Allergies Allergy/AdvReac Type Severity Reaction Status Date / Time No Known Allergies Allergy Unverified 06/17/17 14:18 Home Medications:: Home Medications Medication Instructions Recorded Confirmed Type Aspirin [Aspir 81] 81 mg PO DAILY 09/07/17 09/07/17 History Budesonide/Formoterol Fumarate 2 puffs IH BID 09/07/17 09/08/17 History [Symbicort 80-4.5 Mcg Inhaler] Fluconazole [Diflucan 100mg tablet] 100 mg PO DAILY 09/07/17 09/08/17 History Fluconazole [Diflucan 200mg tablet] 200 mg PO DAILY 09/07/17 09/07/17 History Furosemide [Lasix 20mg tab] 20 mg PO DAILY 09/07/17 09/07/17 History Pantoprazole Sodium [Protonix 40mg 40 mg PO DAILY 09/07/17 09/08/17 History tablet] Tiotropium [place] [Spiriva 2 puff IH DAILY 09/07/17 09/08/17 History 18mcg/puff inhaler] dilTIAZem HCl [Cardizem] 30 mg PO Q6H 09/07/17 09/08/17 History levoFLOXacin [Levaquin 750mg 750 mg PO DAILY 09/07/17 09/07/17 History tablet] predniSONE [Deltasone 5mg 20 mg PO DAILY 09/07/17 09/08/17 History tablet] Guaifenesin/Dextromethorphan 10 ml PO Q6HP PRN 09/08/17 09/08/17 History [Robitussin Cough-Chest Dm Liq] Ipratropium/Albuterol Sulfate 3 ml IH Q4HP PRN 09/08/17 09/08/17 History [Duoneb 3mL neb] Polyethylene Glycol 3350 [PEG 3350 17 gm PO DAILYP PRN 09/08/17 09/08/17 History 17gm Packet] Height: 1.65 m Weight: 59.988 kg Laboratory Results:: Laboratory Results - last 24 hr 09/10/17 12:00: Urine Color Yellow, Urine Appearance Clear, Urine pH 6.0, Ur Specific [place] 1.025, Urine Protein Trace, Urine Glucose (UA) Negative, Urine Ketones Negative, Urine Blood Negative, Urine Nitrate Negative, Urine Bilirubin Negative, Urine Urobilinogen 0.2, Ur Leukocyte Esterase Negative, Urine RBC None, Urine WBC 3-5, Ur Squamous Epith Cells Occasional, Urine Bacteria 2+ A, Hyaline Casts O 09/10/17 17:00: Vancomycin Trough 11.1 09/11/17 08:20: WBC 25.4 H*, RBC 3.54 L, Hgb 10.3 L, Hct 32.7 L, MCV 92.5, MCH 29.2, MCHC 31.6 L, RDW 14.7, Plt Count 100 L D, MPV 9.3, Neut % (Auto) 97.1 H, Lymph % (Auto) 0.8 L, [place] % (Auto) 1.6 L, Eos % (Auto) 0.3, Baso % (Auto) 0.1, Neut # (Auto) 24.7 H, Lymph # (Auto) 0.2 L, [place] # (Auto) 0.4, Eos # (Auto) 0.1, Baso # (Auto) 0.0, Total Counted 100, Neutrophils % (Manual) 98 H, Lymphocytes % (Manual) 1 L, Monocytes % (Manual) 1 L, Platelet Estimate Slight decrease, RBC Morphology Normal 09/11/17 08:20: Sodium 151 H*, Potassium 3.3 L, Chloride 107, Carbon Dioxide 42 H*, Anion Gap 5.3, BUN 42 H, Creatinine 0.60 D, Estimated Creat Clear 42, Estimated GFR 96, Est GFR ( Amer) 116 D, Glucose 147 H Medical History: Reports:: Atrial Fibrillation, Congestive Heart Failure, Hypertension Denies:: Cancer, Diabetes Mellitus Type 1, Diabetes Mellitus Type 2, MRSA Assessment and Plan (1) Pneumonia Current visit: Yes Status: Acute Category: Medical Code(s): J18.9 - Pneumonia, unspecified organism (2) COPD exacerbation Current visit: Yes Status: Acute Category: Medical Code(s): J44.1 - Chronic obstructive pulmonary disease with (acute) exacerbation (3) Anemia Current visit: Yes Status: Acute Category: Medical Code(s): D64.9 - Anemia, unspecified (4) History of hypertension Current visit: Yes Status: Acute Category: Medical Code(s): Z86.79 - Personal history of other diseases of the circulatory system (5) Hyperthyroidism Current visit: Yes Status: Acute Category: Medical Code(s): E05.90 - Thyrotoxicosis, unspecified without thyrotoxic crisis or storm - Assessment and plan all Dx Assessment and Plan for all problems:: BASED ON VANCOMYCIN TROUGH LEVEL AND PATIENT FACTORS, RECOMMEND CONTINUING VANCOMYCIN 1 GM IV Q24H. PHARMACY WILL CONTINUE TO MONITOR DAILY AND ADJUST APPROPRIATE.
--- NOTE | 2017-09-11 11:57 | SW/DCPLANNER ---
Patient and patients family has refused Hospice care at this time. Tabitha Jauregui with Hospice will follow up with this patient throughout stay an once discharged to answer any questions.
--- NOTE | 2017-09-11 19:36 | PC.NURSE ---
REPORT GIVEN TO ELOISE MORALES
[2017-09-12] VITALS (12 sets, daily range): BP systolic 106–184; BP diastolic 58–81; PULSE 104–150; RESP 16–24; TEMP 36.2–37; O2SAT 85–91
--- NOTE | 2017-09-12 03:20 | PC.NURSE ---
no changes noted from previous assessment, pt has rested much of shift, pt c/o pain in the abdomen once this shift which was relieved with PRN medication per MAR, abdomen is tender and distended, bowel sounds active, mg is patent and draining tea colored urine, dressing to the coccyx was changed 09/12/2017, continuous pulse oximeter has fluctuated this shift ranging from 77 to 89, pt has been on and off the BiPap at pt request, 50% venturi mask applied when off BiPap, rhonchi noted to auscultation, no acute distress noted at this time, call light in reach, family at bedside, will continue to monitor.
[2017-09-12 07:03] LABS: Anion Gap 8.5 mEq/L (5-15); Basophils # 0.1 K/mm3 (0-0.2); Basophils % 0.2 % (0.1-2.0); Blood Urea Nitrogen 36 mg/dL (7-18); Carbon Dioxide 37 mmol/L (21.0-32.0); Chloride 106 mmol/L (98-107); Creatinine Clearance Estimated 42 mL/min (0-300); Creatinine,Serum 0.57 mg/dL (0.55-1.02); Eosinophils # 0.1 K/mm3 (0.0-0.4); Eosinophils % 0.2 % (0.1-12.0); Estimated Glomerular Filt Rate 102 ml/min (>60); GFR (African American) 123 ML/MIN (>60); Glucose 150 mg/dL (74-106); Hematocrit 38.2 % (37.0-47.0); Lymphocytes # 0.3 K/mm3 (0.7-4.5); Lymphocytes % 1.1 K/mm3 (10-50); Mean Corpuscular HGB Conc 30.6 g/dL (31.8-35.4); Mean Corpuscular Hemoglobin 29.2 pg (27.0-31.2); Mean Corpuscular Volume 95.6 fl (81-99); Mean Platelet Volume 9.5 fl (7.4-10.4); Monocytes # 0.4 K/mm3 (0.1-1.0); Monocytes % 1.7 % (1.7-9.3); Neutrophils % 96.8 % (37.0-80.0); Platelet Count 86 K/mm3 (142-424); Red Blood Count 3.99 M/mm3 (4.20-5.40); Red Cell Distribution Width 14.4 % (11.5-17.5); Sodium 148 mmol/L (136-145); White Blood Count 25.8 K/mm3 (4.8-10.8)
[2017-09-12 07:06] LABS: Potassium 3.5 mmoL/L (3.5-5.1)
[2017-09-12 07:08] LABS: MANUAL DIFFERENTIAL MANUAL DIFFERENTIAL (MANUAL DIFF)
--- NOTE | 2017-09-12 07:14 | PC.NURSE ---
report given to Shania Carmona RN
--- NOTE | 2017-09-12 07:20 | P.PN_ITS ---
Subjective Date: 09/11/17 Time: 08:00 Principal diagnosis: SOA Interval history: This is a late note. Pt was seen on 09/11/2017 for follow up in hospital and test results. Pt was still SOA and requiring supplemental oxygen. Results of echo discussed with family. Pt was sleepy and not very interactive. Exam Vital signs and Labs for Last 24 Hours: Temp Pulse Resp BP Pulse Ox 97.2 F L 106 H 22 143/78 90 L 09/12/17 04:00 09/12/17 04:00 09/12/17 04:00 09/12/17 04:00 09/12/17 04:00 Laboratory Results - last 24 hr 09/11/17 08:20: WBC 25.4 H*, RBC 3.54 L, Hgb 10.3 L, Hct 32.7 L, MCV 92.5, MCH 29.2, MCHC 31.6 L, RDW 14.7, Plt Count 100 L D, MPV 9.3, Neut % (Auto) 97.1 H, Lymph % (Auto) 0.8 L, [place] % (Auto) 1.6 L, Eos % (Auto) 0.3, Baso % (Auto) 0.1, Neut # (Auto) 24.7 H, Lymph # (Auto) 0.2 L, [place] # (Auto) 0.4, Eos # (Auto) 0.1 , Baso # (Auto) 0.0, Total Counted 100, Neutrophils % (Manual) 98 H, Lymphocytes % (Manual) 1 L, Monocytes % (Manual) 1 L, Platelet Estimate Slight decrease, RBC Morphology Normal 09/11/17 08:20: Sodium 151 H*, Potassium 3.3 L, Chloride 107, Carbon Dioxide 42 H*, Anion Gap 5.3, BUN 42 H, Creatinine 0.60 D, Estimated Creat Clear 42, Estimated GFR 96, Est GFR ( Amer) 116 D, Glucose 147 H 09/12/17 06:30: WBC 25.8 H*, RBC 3.99 L, Hct 38.2, MCV 95.6, MCH 29.2, MCHC 30.6 L, RDW 14.4, Plt Count 86 L, MPV 9.5, Neut % (Auto) 96.8 H, Lymph % (Auto) 1.1 L, [place] % (Auto) 1.7, Eos % (Auto) 0.2, Baso % (Auto) 0.2, Neut # (Auto) 25.0 H, Lymph # (Auto) 0.3 L, [place] # (Auto) 0.4, Eos # (Auto) 0.1, Baso # (Auto ) 0.1 09/12/17 06:30: Sodium 148 H, Potassium 3.5, Chloride 106, Carbon Dioxide 37 H, Anion Gap 8.5, BUN 36 H, Creatinine 0.57, Estimated Creat Clear 42, Estimated GFR 102, Est GFR ( Amer) 123, Glucose 150 H I & O for Last 24 hours: Intake & Output 09/09/17 09/10/17 09/11/17 09/12/17 11:59 11:59 11:59 11:59 Intake Total 50 / 50 490 / 490 1220 / 1220 2154 / 2154 Output Total 400 / 400 1650 / 1650 550 / 550 Balance 50 / 50 90 / 90 -430 / -430 1604 / 1604 Weight 127 lb 3 oz 135 lb 9.349 oz 132 lb 4 oz 130 lb 7 oz Microbiology Reports for the Last 24 Hours: Microbiology 09/10/17 12:00 Urine,Catheterized Urine Culture - Preliminary NO GROWTH AFTER 24 HOURS - *Routine Respiratory Exam Present: rhonchi, diminished air movement - *Routine Cardiovascular Exam Present: RRR Progress Note: A&P (1) Pneumonia Status: Acute Current Visit: Yes (2) COPD exacerbation Status: Acute Current Visit: Yes (3) Anemia Status: Acute Current Visit: Yes (4) History of hypertension Status: Acute Current Visit: Yes (5) Hyperthyroidism Status: Acute Current Visit: Yes Assessment and Plan for All Diagnoses:: Echo was a poor/difficult study due to the patient's lung disease. LVEF noted to be >65% without wall motion abnormalities. No significant valve abnormalities noted. Nothing further to add from a cardiac standpoint. Will be available if needed.
[2017-09-12 08:13] LABS: Lymphocytes % 2 % (10-50); Monocytes % 3 % (2-9); Neutrophils % 95 % (42-76); Total Cells Counted 100
[2017-09-12 08:14] LABS: Platelet Estimate Moderate Decrease; RBC Morphology Normal
[2017-09-12 08:18] LABS: Hemoglobin 11.7 g/dL (12.2-16.2)
--- NOTE | 2017-09-12 08:38 | HMH.ACPN2 ---
Internal Medicine - PN: Subj *Date: 09/12/17 *Time: 08:38 Exam Vital signs and Labs for Last 24 Hours: Temp Pulse Resp BP Pulse Ox 97.3 F L 109 H 24 145/79 90 L 09/12/17 08:00 09/12/17 08:00 09/12/17 08:00 09/12/17 08:00 09/12/17 08:00 Laboratory Results - last 24 hr 09/11/17 08:20: WBC 25.4 H*, RBC 3.54 L, Hgb 10.3 L, Hct 32.7 L, MCV 92.5, MCH 29.2, MCHC 31.6 L, RDW 14.7, Plt Count 100 L D, MPV 9.3, Neut % (Auto) 97.1 H, Lymph % (Auto) 0.8 L, [place] % (Auto) 1.6 L, Eos % (Auto) 0.3, Baso % (Auto) 0.1, Neut # (Auto) 24.7 H, Lymph # (Auto) 0.2 L, [place] # (Auto) 0.4, Eos # (Auto) 0.1, Baso # (Auto) 0.0, Total Counted 100, Neutrophils % (Manual) 98 H, Lymphocytes % (Manual) 1 L, Monocytes % (Manual) 1 L, Platelet Estimate Slight decrease, RBC Morphology Normal 09/11/17 08:20: Sodium 151 H*, Potassium 3.3 L, Chloride 107, Carbon Dioxide 42 H*, Anion Gap 5.3, BUN 42 H, Creatinine 0.60 D, Estimated Creat Clear 42, Estimated GFR 96, Est GFR ( Amer) 116 D, Glucose 147 H 09/12/17 06:30: WBC 25.8 H*, RBC 3.99 L, Hgb 11.7 L D, Hct 38.2, MCV 95.6, MCH 29.2, MCHC 30.6 L, RDW 14.4, Plt Count 86 L, MPV 9.5, Neut % (Auto) 96.8 H, Lymph % (Auto) 1.1 L, [place] % (Auto) 1.7, Eos % (Auto) 0.2, Baso % (Auto) 0.2, Neut # (Auto) 25.0 H, Lymph # (Auto) 0.3 L, [place] # (Auto) 0.4, Eos # (Auto) 0.1, Baso # (Auto) 0.1, Total Counted 100, Neutrophils % (Manual) 95 H, Lymphocytes % (Manual) 2 L, Monocytes % (Manual) 3, Platelet Estimate Moderate decrease, RBC Morphology Normal 09/12/17 06:30: Sodium 148 H, Potassium 3.5, Chloride 106, Carbon Dioxide 37 H, Anion Gap 8.5, BUN 36 H, Creatinine 0.57, Estimated Creat Clear 42, Estimated GFR 102, Est GFR ( Amer) 123, Glucose 150 H I & O for Last 24 hours: Intake & Output 09/09/17 09/10/17 09/11/17 09/12/17 11:59 11:59 11:59 11:59 Intake Total 50 / 50 490 / 490 1220 / 1220 2154 / 2154 Output Total 400 / 400 1650 / 1650 550 / 550 Balance 50 / 50 90 / 90 -430 / -430 1604 / 1604 Weight 127 lb 3 oz 135 lb 9.349 oz 132 lb 4 oz 130 lb 7 oz Microbiology Reports for the Last 24 Hours: Microbiology 09/10/17 12:00 Urine,Catheterized Urine Culture - Preliminary NO GROWTH AFTER 24 HOURS - Constitutional no acute distress - *Routine HEENT Exam Head: Present: normocephalic Eye: Present: PERRL ENT: Present: mucous membranes moist - *Routine Neck Exam Present: supple, full ROM - *Routine Respiratory Exam Present: rhonchi, crackles, diminished air movement - *Routine Cardiovascular Exam Present: RRR - *Routine Abdominal Exam Present: soft, tenderness - *Routine Neurological Exam Present: alert - Routine Psychiatric Exam Present: normal affect Assessment and Plan (1) Pneumonia Current visit: Yes Status: Acute Category: Medical Code(s): J18.9 - Pneumonia, unspecified organism (2) COPD exacerbation Current visit: Yes Status: Acute Category: Medical Code(s): J44.1 - Chronic obstructive pulmonary disease with (acute) exacerbation (3) Anemia Current visit: Yes Status: Acute Category: Medical Code(s): D64.9 - Anemia, unspecified (4) History of hypertension Current visit: Yes Status: Acute Category: Medical Code(s): Z86.79 - Personal history of other diseases of the circulatory system (5) Hyperthyroidism Current visit: Yes Status: Acute Category: Medical Code(s): E05.90 - Thyrotoxicosis, unspecified without thyrotoxic crisis or storm - Assessment and plan all Dx Assessment and Plan for all problems:: Discussion with patient/family regarding hospice and antibiotic therapy. At this time family wants to continue with antibiotic therapy. Patient is continuing to decline
--- NOTE | 2017-09-12 08:41 | P.PN_ITS ---
Internal Medicine - PN: Subj *Date: 09/12/17 *Time: 08:38 Exam Vital signs and Labs for Last 24 Hours: Temp Pulse Resp BP Pulse Ox 97.3 F L 109 H 24 145/79 90 L 09/12/17 08:00 09/12/17 08:00 09/12/17 08:00 09/12/17 08:00 09/12/17 08:00 Laboratory Results - last 24 hr 09/11/17 08:20: WBC 25.4 H*, RBC 3.54 L, Hgb 10.3 L, Hct 32.7 L, MCV 92.5, MCH 29.2, MCHC 31.6 L, RDW 14.7, Plt Count 100 L D, MPV 9.3, Neut % (Auto) 97.1 H, Lymph % (Auto) 0.8 L, [place] % (Auto) 1.6 L, Eos % (Auto) 0.3, Baso % (Auto) 0.1, Neut # (Auto) 24.7 H, Lymph # (Auto) 0.2 L, [place] # (Auto) 0.4, Eos # (Auto) 0.1 , Baso # (Auto) 0.0, Total Counted 100, Neutrophils % (Manual) 98 H, Lymphocytes % (Manual) 1 L, Monocytes % (Manual) 1 L, Platelet Estimate Slight decrease, RBC Morphology Normal 09/11/17 08:20: Sodium 151 H*, Potassium 3.3 L, Chloride 107, Carbon Dioxide 42 H*, Anion Gap 5.3, BUN 42 H, Creatinine 0.60 D, Estimated Creat Clear 42, Estimated GFR 96, Est GFR ( Amer) 116 D, Glucose 147 H 09/12/17 06:30: WBC 25.8 H*, RBC 3.99 L, Hgb 11.7 L D, Hct 38.2, MCV 95.6, MCH 29.2, MCHC 30.6 L, RDW 14.4, Plt Count 86 L, MPV 9.5, Neut % (Auto) 96.8 H, Lymph % (Auto) 1.1 L, [place] % (Auto) 1.7, Eos % (Auto) 0.2, Baso % (Auto) 0.2, Neut # (Auto) 25.0 H, Lymph # (Auto) 0.3 L, [place] # (Auto) 0.4, Eos # (Auto) 0.1 , Baso # (Auto) 0.1, Total Counted 100, Neutrophils % (Manual) 95 H, Lymphocytes % (Manual) 2 L, Monocytes % (Manual) 3, Platelet Estimate Moderate decrease, RBC Morphology Normal 09/12/17 06:30: Sodium 148 H, Potassium 3.5, Chloride 106, Carbon Dioxide 37 H, Anion Gap 8.5, BUN 36 H, Creatinine 0.57, Estimated Creat Clear 42, Estimated GFR 102, Est GFR ( Amer) 123, Glucose 150 H I & O for Last 24 hours: Intake & Output 09/09/17 09/10/17 09/11/17 09/12/17 11:59 11:59 11:59 11:59 Intake Total 50 / 50 490 / 490 1220 / 1220 2154 / 2154 Output Total 400 / 400 1650 / 1650 550 / 550 Balance 50 / 50 90 / 90 -430 / -430 1604 / 1604 Weight 127 lb 3 oz 135 lb 9.349 oz 132 lb 4 oz 130 lb 7 oz Microbiology Reports for the Last 24 Hours: Microbiology 09/10/17 12:00 Urine,Catheterized Urine Culture - Preliminary NO GROWTH AFTER 24 HOURS - Constitutional no acute distress - *Routine HEENT Exam Head: Present: normocephalic Eye: Present: PERRL ENT: Present: mucous membranes moist - *Routine Neck Exam Present: supple, full ROM - *Routine Respiratory Exam Present: rhonchi, crackles, diminished air movement - *Routine Cardiovascular Exam Present: RRR - *Routine Abdominal Exam Present: soft, tenderness - *Routine Neurological Exam Present: alert - Routine Psychiatric Exam Present: normal affect Assessment and Plan (1) Pneumonia Current visit: Yes Status: Acute Category: Medical Code(s): J18.9 - Pneumonia, unspecified organism (2) COPD exacerbation Current visit: Yes Status: Acute Category: Medical Code(s): J44.1 - Chronic obstructive pulmonary disease with (acute) exacerbation (3) Anemia Current visit: Yes Status: Acute Category: Medical Code(s): D64.9 - Anemia , unspecified (4) History of hypertension Current visit: Yes Status: Acute Category: Medical Code(s): Z86.79 - Personal history of other diseases of the circulatory system (5) Hyperthyroidism Current visit: Yes Status: Acute Category: Medical Code(s): E05.90 - Thyrotoxicosis, unspecified without thyrotoxic crisis o
--- NOTE | 2017-09-12 09:02 | PC.NURSE ---
Daughter at bedside stating that her mom told her she just wanted to go and to let her go. Daughter is tearful and stating that she doesn't want her mom to suffer but just cannot find it in her to tell her to go. Spoke with daughter about medication being given to keep patient comfortable and also comforted daughter as well.
--- NOTE | 2017-09-12 13:02 | DIET.NUTRFU ---
Pt was unable to take any food po yesterday. She is resting in bed with a venti mask. Family at bedside. Will send courtesy cart to family.
--- NOTE | 2017-09-12 14:17 | SW/DCPLANNER ---
As of 2PM this afternoon patient is now with Hospice care and will be comfort care only.
--- NOTE | 2017-09-12 14:40 | PC.NURSE ---
Tabitha with Hospice here to see patient and patient's family. Patient's family has decided to admit patient to Hospice care and change to comfort measures. Tabitha with Hospice spoke with Irene Hernandez with Dr. Perez's office and rec'd new orders to discontinue abt meds, and prn medications. New orders were also rec'd by Tabitha to change Tylenol to supp., start Robinol 0.4mg IV q4hrp for secretions and Ativan 0.5mg IV q6hp for agitation. Tabitha states that Irene also would like all am labs discontinued at this point also. This nurse spoke with Irene about having her to put that order in.
--- NOTE | 2017-09-12 16:50 | PC.NURSE ---
Unable to obtain sputum related to patient's comfort measures and patient's inability to cough a specimen up.
--- NOTE | 2017-09-12 18:56 | PC.NURSE ---
Family remains at bedside. O2 sats dropping into the low 80s. Family made aware.
--- NOTE | 2017-09-12 19:32 | PC.NURSE ---
report given to laxmi
--- NOTE | 2017-09-12 19:32 | PC.NURSE ---
report given to laxmi
[2017-09-13 03:17] VITALS: RESP 16
--- NOTE | 2017-09-13 04:45 | PC.NURSE ---
PATIENT SEEMS TO HAVE BEEN RESTING COMFORTABLY THIS SHIFT. FAMILY REFUSED PATIENT BATH AND SOME TURNING/REPOSITIONING. BIPAP IN PLACE WITH OXYGEN SATURATIONS 80-91%. PATIENT'S HEART RATE HAS BEEN APPROX 115-150 THIS SHIFT. MORPHINE GIVEN EVERY 4 HOURS PER FAMILY REQUEST. PRN ROBINAL GIVEN TO HELP WITH SECRETIONS. PATIENT RESTING COMFORTABLY AT THIS TIME. NO DISTRESS NOTED. WILL CONTINUE TO MONITOR.
[2017-09-13 07:07] VITALS: RESP 16
--- NOTE | 2017-09-13 07:31 | PC.NURSE ---
REPORT GIVEN TO Vishal GAMBLE W/C
[2017-09-13 07:54] VITALS: BP 89/48; PULSE 121; RESP 18; TEMP 36.3; O2SAT 88
[2017-09-13 08:00] VITALS: PULSE 97; O2SAT 88
--- NOTE | 2017-09-13 15:03 | P.PN_ITS ---
Internal Medicine - PN: Subj *Date: 09/13/17 *Time: 15:00 Interval history: Patient is mottled past knees. Still on BiPAP but family wishes to remove BiPAP in place and O2. Patient is unresponsive. Patient became hospice yesterday with comfort care only. Exam Vital signs and Labs for Last 24 Hours: Temp Pulse Resp BP Pulse Ox 97.3 F L 97 H 18 89/48 88 L 09/13/17 07:54 09/13/17 08:00 09/13/17 07:54 09/13/17 07:54 09/13/17 08:00 I & O for Last 24 hours: Intake & Output 09/11/17 09/12/17 09/13/17 09/14/17 11:59 11:59 11:59 11:59 Intake Total 1220 / 1220 2254 / 2254 0 / 0 0 / 0 Output Total 1650 / 1650 550 / 550 1000 / 1000 Balance -430 / -430 1704 / 1704 -1000 / -1000 0 / 0 Weight 132 lb 4 oz 130 lb 7 oz 136 lb 6 oz Microbiology Reports for the Last 24 Hours: Microbiology 09/10/17 12:00 Urine,Catheterized Urine Culture - Final NO GROWTH AFTER 48 HOURS - Constitutional thin Comments: Unresponsive - *Routine HEENT Exam Head: Present: normocephalic ENT: Present: mucous membranes moist - *Routine Neck Exam Present: supple - *Routine Respiratory Exam Present: wheezes, crackles, diminished air movement - *Routine Cardiovascular Exam Present: RRR - *Routine Abdominal Exam Present: soft - *Routine Skin Exam Present: intact, mottling - *Routine Neurological Exam Lethargic and unresponsive Assessment and Plan (1) Pneumonia Current visit: Yes Status: Acute Category: Medical Code(s): J18.9 - Pneumonia, unspecified organism (2) COPD exacerbation Current visit: Yes Status: Acute Category: Medical Code(s): J44.1 - Chronic obstructive pulmonary disease with (acute) exacerbation (3) Anemia Current visit: Yes Status: Acute Category: Medical Code(s): D64.9 - Anemia , unspecified (4) History of hypertension Current visit: Yes Status: Acute Category: Medical Code(s): Z86.79 - Personal history of other diseases of the circulatory system (5) Hyperthyroidism Current visit: Yes Status: Acute Category: Medical Code(s): E05.90 - Thyrotoxicosis, unspecified without thyrotoxic crisis or storm - Assessment and plan all Dx Assessment and Plan for all problems:: We will remove BiPAP in place on O2 per family request hospital notified
--- NOTE | 2017-09-13 18:13 | PC.NURSE ---
1710 - Family informed tech that they thought pt had . Tech then informed this nurse. Upon entering the room pt was not breathing. Pt had no pulse. I explained to family procedure for pronouncing . ER notified @ approx 1715. arrived to room at 1720 and pronounced pt had . Family was given time pt. Vasquez naylor called @ 1725. I spoke with Cherrie Randhawa and she informed me pt did not meet qualifications for donation. Case ID# is [id number]. On-call RN (Margoth) was called at hospice and informed of pt's passing. Family expressed that pt had arrangements with [facility]. They were called and notified. Awaiting there arrival at this time.
--- NOTE | 2017-09-13 19:01 | PC.NURSE ---
Report to be given to Vishal Magdaleno RN
--- NOTE | 2017-09-17 12:38 | HMH.DCSUM ---
General - General Admission date: 09/07/17 Discharge date: 09/13/17 HPI HPI: this wf who was at [facility] and had cough and sob with no chest pain but dec sat with no resp to treatment at [facility] was brought by ems to ed and found to have pneuonia- years old white female with history of COPD bronchiectasis and DNR from the [facility]. 2 days ago , she developed respiratory symptoms started on Levaquin and prednisone. Last night her symptoms started worsening and this morning she was found blue with a sat of 65% by the nursing staff. Upon EMS arrival her sats were 84% she was put on 4 L with increased to 94%. She is in mild to moderate respiratory distress. She has cough but she has no fever. Hospital Course Hospital Course: family request removal of by pap and place on o2 mask, hospice notifed. by pap removed and family at bed side. pt at 1710. Objective Vital signs: Temp Pulse Resp BP Pulse Ox 97.3 F L 97 H 18 89/48 88 L 09/13/17 07:54 09/13/17 08:00 09/13/17 07:54 09/13/17 07:54 09/13/17 08:00 DS: Diagnosis - Discharge Diagnosis (1) Pneumonia Status: Acute (2) COPD exacerbation Status: Acute (3) Anemia Status: Acute (4) History of hypertension Status: Acute (5) Hyperthyroidism Status: Acute Discharge Plan - Patient Discharge Instructions - Follow up Plan Disposition: [facility] Home Medications: Home Medications Medication Instructions Recorded Confirmed Type Aspirin [Aspir 81] 81 mg PO DAILY 09/07/17 09/07/17 History Budesonide/Formoterol Fumarate 2 puffs IH BID 09/07/17 09/08/17 History [Symbicort 80-4.5 Mcg Inhaler] Fluconazole [Diflucan 100mg tablet] 100 mg PO DAILY 09/07/17 09/08/17 History Fluconazole [Diflucan 200mg tablet] 200 mg PO DAILY 09/07/17 09/07/17 History Furosemide [Lasix 20mg tab] 20 mg PO DAILY 09/07/17 09/07/17 History Pantoprazole Sodium [Protonix 40mg 40 mg PO DAILY 09/07/17 09/08/17 History tablet] Tiotropium [place] [Spiriva 2 puff IH DAILY 09/07/17 09/08/17 History 18mcg/puff inhaler] dilTIAZem HCl [Cardizem] 30 mg PO Q6H 09/07/17 09/08/17 History levoFLOXacin [Levaquin 750mg 750 mg PO DAILY 09/07/17 09/07/17 History tablet] predniSONE [Deltasone 5mg 20 mg PO DAILY 09/07/17 09/08/17 History tablet] Guaifenesin/Dextromethorphan 10 ml PO Q6HP PRN 09/08/17 09/08/17 History [Robitussin Cough-Chest Dm Liq] Ipratropium/Albuterol Sulfate 3 ml IH Q4HP PRN 09/08/17 09/08/17 History [Duoneb 3mL neb] Polyethylene Glycol 3350 [PEG 3350 17 gm PO DAILYP PRN 09/08/17 09/08/17 History 17gm Packet] Prescriptions/Medication Reconciliation: No Action Furosemide [Lasix 20mg tab] 20 mg PO DAILY Tiotropium [place] [Spiriva 18mcg/puff inhaler] 2 puff IH DAILY predniSONE [Deltasone 5mg tablet] 20 mg PO DAILY Pantoprazole Sodium [Protonix 40mg tablet] 40 mg PO DAILY Fluconazole [Diflucan 200mg tablet] 200 mg PO DAILY Fluconazole [Diflucan 100mg tablet] 100 mg PO DAILY dilTIAZem HCl [Cardizem] 30 mg PO Q6H Budesonide/Formoterol Fumarate [Symbicort 80-4.5 Mcg Inhaler] 2 puffs IH BID Aspirin [Aspir 81] 81 mg PO DAILY Guaifenesin/Dextromethorphan [Robitussin Cough-Chest Dm Liq] 10 ml PO Q6HP PRN PRN Reason: Cough Polyethylene Glycol 3350 [PEG 3350 17gm Packet] 17 gm PO DAILYP PRN PRN Reason: Constipation Ipratropium/Albuterol Sulfate [Duoneb 3mL neb] 3 ml IH Q4HP PRN PRN Reason: Shortness Of Breath levoFLOXacin [Levaquin 750mg tablet] 750 mg PO DAILY
--- NOTE | 2017-09-17 12:46 | P.DS_ITS ---
General - General Admission date: 09/07/17 Discharge date: 09/13/17 HPI HPI: [facility] and sob with no chest pain but dec sat with no resp [facility] treatment [facility] was brought by ems to ed and found to have pneuonia- years old white female with history of COPD bronchiectasis and DNR from the [facility]. 2 days ago , she developed respiratory symptoms started on Levaquin and prednisone. Last night her symptoms started worsening and this morning she was found blue with a sat of 65% by the nursing staff. Upon EMS arrival her sats were 84% she was put on 4 L with increased to 94%. She is in mild to moderate respiratory distress. She has cough but she has no fever. Hospital Course Hospital Course: family request removal of by pap and place on o2 mask, hospice notifed. by pap removed and family at bed side. pt at 1710. Objective Vital signs: Temp Pulse Resp BP Pulse Ox 97.3 F L 97 H 18 89/48 88 L 09/13/17 07:54 09/13/17 08:00 09/13/17 07:54 09/13/17 07:54 09/13/17 08:00 DS: Diagnosis - Discharge Diagnosis (1) Pneumonia Status: Acute (2) COPD exacerbation Status: Acute (3) Anemia Status: Acute (4) History of hypertension Status: Acute (5) Hyperthyroidism Status: Acute Discharge Plan - Patient Discharge Instructions - Follow up Plan Disposition: [facility] Home Medications: Home Medications Medication Instructions Recorded Confirmed Type Aspirin [Aspir 81] 81 mg PO DAILY 09/07/17 09/07/17 History Budesonide/Formoterol Fumarate 2 puffs IH BID 09/07/17 09/08/17 History [Symbicort 80-4.5 Mcg Inhaler] Fluconazole [Diflucan 100mg tablet] 100 mg PO DAILY 09/07/17 09/08/17 History Fluconazole [Diflucan 200mg tablet] 200 mg PO DAILY 09/07/17 09/07/17 History Furosemide [Lasix 20mg tab] 20 mg PO DAILY 09/07/17 09/07/17 History Pantoprazole Sodium [Protonix 40mg 40 mg PO DAILY 09/07/17 09/08/17 History tablet] Tiotropium [place] [Spiriva 2 puff IH DAILY 09/07/17 09/08/17 History 18mcg/puff inhaler] dilTIAZem HCl [Cardizem] 30 mg PO Q6H 09/07/17 09/08/17 History levoFLOXacin [Levaquin 750mg 750 mg PO DAILY 09/07/17 09/07/17 History tablet] predniSONE [Deltasone 5mg 20 mg PO DAILY 09/07/17 09/08/17 History tablet] Guaifenesin/Dextromethorphan 10 ml PO Q6HP PRN 09/08/17 09/08/17 History [Robitussin Cough-Chest Dm Liq] Ipratropium/Albuterol Sulfate 3 ml IH Q4HP PRN 09/08/17 09/08/17 History [Duoneb 3mL neb] Polyethylene Glycol 3350 [PEG 3350 17 gm PO DAILYP PRN 09/08/17 09/08/17 History 17gm Packet] Prescriptions/Medication Reconciliation: No Action Furosemide [Lasix 20mg tab] 20 mg PO DAILY Tiotropium [place] [Spiriva 18mcg/puff inhaler] 2 puff IH DAILY predniSONE [Deltasone 5mg tablet] 20 mg PO DAILY Pantoprazole Sodium [Protonix 40mg tablet] 40 mg PO DAILY Fluconazole [Diflucan 200mg tablet] 200 mg PO DAILY Fluconazole [Diflucan 100mg tablet] 100 mg PO DAILY dilTIAZem HCl [Cardizem] 30 mg PO Q6H Budesonide/Formoterol Fumarate [Symbicort 80-4.5 Mcg Inhaler] 2 puffs IH BID Aspirin [Aspir 81] 81 mg PO DAILY Guaifenesin/Dextromethorphan [Robitussin Cough-Chest Dm Liq] 10 ml PO Q6HP PRN PRN Reason: Cough Polyethylene Glycol 3350 [PEG 33
== END 2017-09-13 19:45 | disposition expired | DRG 190 ==
LOC: ER 14:21 → 2ND 15:03
PROVIDERS: Nurse Practitioner Family; Admitting Provider Emergency Medicine; Emergency Provider Emergency Medicine; Family Provider Family Medicine; PCP Family Medicine; Visit Provider Emergency Medicine
DX: J44.0 Chronic obstructive pulmonary disease with (acute) lower respiratory infection (principal); J18.9 Pneumonia, unspecified organism; I50.9 Heart failure, unspecified; E05.90 Thyrotoxicosis, unspecified without thyrotoxic crisis or storm; D64.9 Anemia, unspecified; J44.1 Chronic obstructive pulmonary disease with (acute) exacerbation; I10 Essential (primary) hypertension; Z66 Do not resuscitate
CPT/HCPCS: 36415; 71045; 71275; 74176; 80048; 80053; 80202; 81001; 82803; 83605; 83735; 83880; 84436; 84443; 84484; 85007; 85014; 85018; 85025; 86850; 87040; 87086; 87486; 87507; 87581; 87633; 87798; 93005; 93306; 94640; 94660; 94761; 96365; 96366; 96367; 96374; 96375; 99283; J0692; J1956; J2405; J3370; P9016; Q9967